=== PATIENT | female | born 1955 | race Caucasian/White ===

== ENCOUNTER 2024-02-20 14:38 | Outpatient (REF) | payer MEDICARE, MEDICAID, SELFPAY ==
[2024-02-22 17:53] LABS: HPV mRNA E6/E7 Not Detected (Not Detected)
== END 2024-02-20 14:39 | disposition home or self-care (01) ==
LOC: HO.LNP 14:38
PROVIDERS: PCP Internal Medicine; Visit Provider Obstetrics & Gynecology
DX: Z01.419 Encounter for gynecological examination (general) (routine) without abnormal findings (principal); R10.2 Pelvic and perineal pain; R31.29 Other microscopic hematuria; Z78.0 Asymptomatic menopausal state
CPT/HCPCS: 87086; 87624; 88175; 99387

== ENCOUNTER 2024-02-20 14:38 | Outpatient (AMB) | payer MEDICARE, MEDICAID, SELFPAY ==
--- NOTE | 2024-02-20 15:19 | A.OFFVIS_ITS ---
Vital Signs 02/20/24 15:21 Height 5 ft 5 in Weight 190 lb BMI 31.6 BP 110/60 Intake Visit Reasons: New patient Annual Retail Receiving Clerk Required: No Information Interpreted: non-clinical & clinical Applications Administrator: Applications Administrator Present (Lina Mcclure ANDRIA) Accompanied by: Self / Same As Patient Allergies Sulfa (Sulfonamide Antibiotics) Allergy (Intermediate, Verified 02/20/24 15:23) rash latex [LATEX] Allergy (Unknown, Unverified 02/20/24 15:23) RASH Latex Allergy (Unknown, Uncoded 02/20/24 15:23) Rash Post menopausal: Yes HPI Comments Details: Presenting for annual exam. Complaining of pelvic pressure on and off no associated urinary or GI symptoms, no vaginal bleeding or discharge . 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 Housing: House Alcohol intake: current Alcohol intake frequency: 3 or more drinks per day Patient Tobacco Use Status: Never used Tobacco Current occupational status: retired Sexual orientation: Straight/Heterosexual Gender identity: Female Review of Systems Const All systems reviewed & are unremarkable except as noted in HPI and below Card Reports as per HPI Resp Reports as per HPI GI Reports as per HPI and Reports no additional complaints Reports as per HPI Physical Exam Vital Signs: Last Vital Signs BP 110/60 02/20/24 15:21 BMI result Body Mass Index 31.6 Const General: cooperative, healthy appearing and comfortable Chest Chest palpation & inspection: normal inspection of the chest and normal palpation of entire chest wall Breast/axilla inspection: normal inspection of the breasts and normal inspection of the axillae Breast/axilla palpation: normal palpation of the breasts, normal palpation of the axillae and no axillary lymphadenopathy Resp Effort & Inspection: normal respiratory effort Auscultation: clear to auscultation bilaterally Percussion: percussion normal Cardio Palpation: normal PMI Rate: regular rate Rhythm: regular rhythm Heart sounds: no murmurs and no rubs Peripheral pulses: Peripheral pulses 2+ throughout GI Inspection: Yes normal to inspection Palpation (GI): Soft to palpation, nontender, no guarding, not rigid and No hepatosplenomegaly present Percussion: Yes normal to percussion Auscultation: normal bowel sounds Rectal Exam - Female: deferred General: Yes bladder normal to palpation External Female Exam: No lesion Speculum Exam - Vagina: normal appearance of the vagina, normal palpation, normal vaginal discharge and not erythematous Speculum Exam - Cervix: normal appearance of the cervix and normal palpation Bimanual exam- vagina & uterus: normal bimanual exam, normal palpation, uterine size normal, bladder normal to palpation, consistency normal and normal palpation Bimanual Exam- Adnexa, other: normal adnexae, no masses and no tenderness Assessment & Plan Assessment & Plan (1) Well woman exam: Code(s): Z01.419 - Encounter for gynecological examination (general) (routine) without abnormal findings Category: Medical Plan: Co testing done although the patient 's age is above 65 with no reason history of any l Pap smears results available. Counseled the patient about the recommended dietary allowance of 1200 mg of Calcium & 800 IU of vitamin D. Instructions given the patient to schedule next screening Mammogram in 05/25. Will order DEXA scan . The patient was instructed to perform monthly self-breast exams and to schedule a 2 week DEXA scan follow-up appointment and an annual exam in a year; All questions answered and the patient verbalized understanding. (2) Pelvic pain: Code(s): R10.2 - Pelvic and perineal pain Category: Medical Plan: Urine dip done in the office showed microscopic hematuria. Discussed with the patient the differential diagnosis of pelvic pain including but not limited to adnexal, uterine masses, pelvic infections (PID), GI the (Irritable bowel syndrome, diverticulitis, others), musculoskeletal, myofascial pain abdominal wall , adhesions, psychological and others causes. Will check results and treat accordingly. All questions answered, the patient verbalized understanding. Instructed the patient to schedule follow-up appointment in 2 weeks (3) Microscopic hematuria: Code(s): R31.29 - Other microscopic hematuria Category: Medical Plan: Urine dip showed microscopic hematuria, urine culture sent. Will repeat urine dip in 2 weeks. Discussed with the patient the possible causes of microscopic hematuria including but not limited to: interstitial cystitis, polyps, stones, masses, urethral inflammatory processes and others. If Urine Culture is negative and repeat urine dip in 2 weeks shows persistent microscopic hematuria, will proceed with CT abdomen/pelvis and urology referral. Instructions given the patient to schedule a 2 week urine dip follow-up appointment. All questions answered and the patient verbalized understanding. Orders: Orders XR DEXA axial skeleton Today Z78.0 - Asymptomatic menopausal state US pelvic and transvaginal Today R10.2 - Pelvic and perineal pain PAP + HPV E6/E7 rfx 18/45 Today Z01.419 - Encounter for gynecological examination (general) (routine) without abnormal findings Referrals Gastroenterology Referral Z12.11 - Encounter for screening for malignant neoplasm of colon Coding Level of Care Code New Pt Prev Care >65yr (03704) Diagnoses Well woman exam Z01.419 Pelvic pain R10.2 Microscopic hematuria R31.29
[2024-02-20 15:21] VITALS: BP 110/60; BMI 31.6
== END 2024-02-20 15:51 | disposition home or self-care (01) ==
PROVIDERS: PCP Internal Medicine; Visit Provider Obstetrics & Gynecology
DX: Z01.419 Encounter for gynecological examination (general) (routine) without abnormal findings (principal); R10.2 Pelvic and perineal pain; R31.29 Other microscopic hematuria
CPT/HCPCS: 99387

== ENCOUNTER 2024-03-12 10:44 | Outpatient (REF) | payer MEDICARE, MEDICAID, SELFPAY | END 2024-03-12 10:45 | disposition home or self-care (01) | LOC: HO.US 10:44 | PROVIDERS: PCP Internal Medicine; Visit Provider Obstetrics & Gynecology | DX: R10.2 Pelvic and perineal pain (principal) | CPT/HCPCS: 76830; 76856 ==

== ENCOUNTER 2024-03-15 12:46 | Outpatient (REF) | payer MEDICARE, MEDICAID, SELFPAY ==
--- NOTE | ~2024-03-15 | MM_ITS ---
EXAMINATION: BONE DENSITOMETRY CLINICAL INDICATION: Asymptomatic menopausal state. COMPARISON: This is the patient's baseline examination. TECHNIQUE: Using a [employer] DXA System (software version: 13.1) manufactured by [employer], dual-energy x-ray absorptiometry was performed of the lumbar spine and left hip. The images are of good technical quality. Summary results are attached. FINDINGS: LEFT FEMUR, NECK: BMD 0.866 g/cm2, Z-score 0.0, T-score -1.2, osteopenia. LEFT FEMUR, TOTAL: BMD 1.060 g/cm2, Z-score 1.4, T-score 0.4, normal. AP SPINE L1-L4: BMD 1.140 g/cm2, Z-score 0.7, T-score -0.3, normal. IDENTIFIED RISK FACTORS: Menopause. HISTORY OF FRACTURE: None listed. MEDICATIONS: Vitamin D. MM/XR DEXA axial skeleton IMPRESSION: 1. DIAGNOSIS: Osteopenia based on the lowest T-score value of -1.2 in the femoral neck applying World Health Organization criteria. 2. 10-YEAR FRACTURE RISK PREDICTION, FRAX: Major osteoporotic fracture (clinical spine, forearm, hip or shoulder) 8.9%. Hip fracture 1.0%. 3. Treatment Recommendations: NOF guidelines recommend consideration for treatment in postmenopausal women and men age 50 and older presenting with the following: -A hip or vertebral (clinical or morphometric) fracture. -T-score less than or equal to -2.5 at the femoral neck or spine after appropriate evaluation to exclude secondary causes. -Low bone mass at the hip or spine and a 10-year fracture probability by FRAX of greater than or equal to 3% for hip fracture or greater than or equal to 20% for major osteoporotic fracture based on the [place] adapted WHO algorithm. 4. Other Recommendations: All treatment decisions require clinical judgment and consideration of individual patient factors, including patient preferences, comorbidities, previous drug use, risk factors not captured in the FRAX model (e.g. frailty, falls, vitamin D deficiency, increased bone turnover, interval significant decline in bone density) and possible under or overestimation of fracture risk by FRAX. Additional medical evaluation for secondary cause of low bone mineral density may be appropriate. FUTURE SCAN RECOMMENDATION: People with diagnosed cases of osteoporosis or at high risk for fracture should have regular bone mineral density tests. For patients eligible for Medicare, routine testing is allowed once every 2 years. The testing frequency can be increased to one year for patients who have rapidly progressing disease, those who are receiving or discontinuing medical therapy to restore bone mass, or have additional risk factors. Electronically signed by: Hellen Heredia MD 03/18/2024 08:39 AM FR[facility]
== END 2024-03-15 12:47 | disposition home or self-care (01) ==
LOC: HO.MAMMO 12:46
PROVIDERS: PCP Internal Medicine; Visit Provider Obstetrics & Gynecology
DX: Z78.0 Asymptomatic menopausal state (principal)
CPT/HCPCS: 77080

== ENCOUNTER 2024-04-08 12:22 | Outpatient (AMB) | payer MEDICARE, MEDICAID, SELFPAY ==
--- NOTE | 2024-04-08 12:35 | MHC.OFFVIS ---
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 Housing: House Alcohol intake: current Alcohol intake frequency: 3 or more drinks per day Patient Tobacco Use Status: Never used Tobacco Current occupational status: retired Sexual orientation: Straight/Heterosexual Gender identity: Female Review of Systems Const All systems reviewed & are unremarkable except as noted in HPI and below Reports as per HPI and Reports no additional complaints GI Reports no additional complaints Reports no additional complaints Assessment & Plan Assessment & Plan (1) Osteopenia: Code(s): M85.80 - Other specified disorders of bone density and structure, unspecified site Category: Medical Plan: Discussed with the patient the DEXA results and FRAX risk. FRAX risk and T score showed no evidence of osteoporosis. Discussed with the patient all the options for osteoporosis prevention including lifestyle modifications including Ca+D supplements 1200 mg po qd/800 MIU, Weight bearing exercises and proteine supplements. The patient verbalized understanding and agreed plan will repeat DEXA in 2 years. (2) Microscopic hematuria: Code(s): R31.29 - Other microscopic hematuria Category: Medical Plan: Repeat urine dip showed no evidence of microscopic hematuria, the patient was reassured Coding Level of Care Code Est Pt Level 3 (74813) Diagnoses Osteopenia M85.80 Microscopic hematuria R31.29
== END 2024-04-08 12:58 | disposition home or self-care (01) ==
PROVIDERS: PCP Internal Medicine; Visit Provider Obstetrics & Gynecology
DX: M85.80 Other specified disorders of bone density and structure, unspecified site (principal); R31.29 Other microscopic hematuria
CPT/HCPCS: 99213

== ENCOUNTER → 2024-04-08 12:22 | Outpatient (BNVA) | payer MEDICARE, MEDICAID, SELFPAY | PROVIDERS: PCP Internal Medicine; Visit Provider Obstetrics & Gynecology | DX: M85.80 Other specified disorders of bone density and structure, unspecified site (principal); R31.29 Other microscopic hematuria | CPT/HCPCS: 99212 ==

== ENCOUNTER 2024-05-15 11:12 | Outpatient (AMB) | payer MEDICARE, MEDICAID, SELFPAY ==
--- NOTE | 2024-05-15 11:13 | AM.OFFWIN_ITS ---
Intake Vital Signs 05/15/24 11:22 Height 5 ft 5 in Weight 192 lb 8 oz BMI 32.0 BP 132/74 Blood Pressure Location Rt brachial Position Sitting Respiration 13 Pulse 81 Pulse Source Pulse Oximeter Pulse Oximetry (%) 97 Oxygen Delivery Method Room Air Intake Visit Reasons: Blood work Intake Note: Patient is here because she needs labs and refill on meds Patient Tobacco Use Status: Never used Tobacco Allergies Sulfa (Sulfonamide Antibiotics) Allergy (Intermediate, Verified 05/15/24 11:32) rash latex [LATEX] Allergy (Unknown, Verified 05/15/24 11:32) RASH Latex Allergy (Unknown, Uncoded 05/15/24 11:32) Rash Do you need a note to return to daycare/school/sports/work: No HPI HPI Comments History of Present Illness Details The patient is a 68-year-old female presenting with requests for laboratory tests and medication refills. She has a history of essential hypertension and hyperlipidemia, both of which are currently managed with atorvastatin and ramipril. The patient has been stable on her blood pressure medication since an episode many years ago and reports no changes in her symptomatology. Recently, she was transitioned to rosuvastatin approximately one year ago for hyperlipidemia management and wishes to evaluate the efficacy of this treatment through laboratory tests. Moreover, the patient experiences controlled asthma, previously managed under the care of a specialist who deemed her condition stable. However, she requires a refill for her Qvar inhaler. Additionally, the patient reports a longstanding heart murmur that has not been recently evaluated and has agreed to further investigation into its etiology. Has osteopenia. TAkes Vit D. Reports DEXA UTD. She will be est care here w/ me as PCP. Her appt as of now is scheduled in October. No records from previous PCP Dr Guzman as of this time Flu UTD Physical Exam Exam awake alert NAD RRR, 2/6 murmur RSB LS CTAB No edema BLE Discussion Notes During today?s visit, I discussed options for managing hyperlipidemia, emphasizing the current treatment plan with rosuvastatin and the need for laboratory evaluation. Risks and benefits of continuing current medications were reviewed, with a focus on ensuring cardiac health given the patient's history of a heart murmur. I informed the patient about the significance of the heart murmur and the importance of obtaining an echocardiogram to investigate its cause. We also discussed strategies to address potential medication gaps and difficulties related to insurance coverage. We agreed to follow up next week to review the test results and make necessary adjustments to her care plan. Plan - Perform laboratory tests including cho lesterol panel, kidney function, liver function, electrolytes, thyroid function, and vitamins B and D levels today - Schedule an echocardiogram to evaluate the heart murmur. - Refill the patient?s inhaler for asthm a management. - Follow-up appointment next week to rev iew laboratory results and adjust medications if necessary. Patient was informed and verbally consented to the use of an ambient scribe for clinic note documentation during this visit. This note is constructed using voice recognition software. While every effort has been made to ensure accuracy in research methods instructor, still errors may have been included Sometimes, these errors may affect the content or meaning of the given sentence . Total time spent caring for the patient today was 40 minutes. This includes time spent before the visit reviewing the chart, time spent during the visit, and time spent after the visit on documentation [facility] Medical History (Updated 05/15/24 @ 11:47 by Silvana Steven [facility]) Asthma HTN (hypertension) High cholesterol Surgical History H/O tubal ligation Family History Mother HTN (hypertension) Uterus cancer Sister Uterus cancer Social History Household Members: Spouse Household Members Other:: grandauthers Housing: House Alcohol intake: current Alcohol intake frequency: 3 or more drinks per day Patient Tobacco Use Status: Never used Tobacco Current occupational status: retired Sexual orientation: Straight/Heterosexual Gender identity: Female Physical Exam Vital Signs: Last Vital Signs Pulse 81 05/15/24 11:22 Resp 13 05/15/24 11:22 BP 132/74 05/15/24 11:22 Pulse Ox 97 05/15/24 11:22 Oxygen Delivery Method Room Air 05/15/24 11:22 BMI result Body Mass Index 32.0 Assessment & Plan Assessment & Plan (1) HLD (hyperlipidemia): Code(s): E78.5 - Hyperlipidemia, unspecified Qualifiers: Hyperlipidemia type: mixed hyperlipidemia Qualified Code(s): E78.2 - Mixed hyperlipidemia (2) HTN (hypertension): Code(s): I10 - Essential (primary) hypertension Qualifiers: Hypertension type: primary hypertension Qualified Code(s): I10 - Essential (primary) hypertension (3) Osteopenia: Code(s): M85.80 - Other specified disorders of bone density and structure, unspecified site Qualifiers: Osteopenia location: unspecified Qualified Code(s): M85.80 - Other specified disorders of bone density and structure, unspecified site (4) Heart murmur on physical examination: Code(s): R01.1 - Cardiac murmur, unspecified Plan . Orders: Orders Hemoglobin A1c Today E78.5 - Hyperlipidemia, unspecified, I10 - Essential (primary) hypertension Lipid Panel Today E78.5 - Hyperlipidemia, unspecified, I10 - Essential (primary) hypertension Vitamin B12 and Folate Today E78.5 - Hyperlipidemia, unspecified, I10 - Essential (primary) hypertension Microalbumin, Random (w Creat) Today E78.5 - Hyperlipidemia, unspecified, I10 - Essential (primary) hypertension Comprehensive [place]. Panel Fast Today E78.5 - Hyperlipidemia, unspecified, I10 - Essential (primary) hypertension TSH reflex Free T4 Today E78.5 - Hyperlipidemia, unspecified, I10 - Essential (primary) hypertension Vitamin D 25-OH Total Today E78.5 - Hyperlipidemia, unspecified, I10 - Essential (primary) hypertension, M85.80 - Other specified disorders of bone density and structure, unspecified site CA echo transthoracic complete Today R01.1 - Cardiac murmur, unspecified Medications: New beclomethasone dipropionate 80 mcg/actuation (Qvar RediHaler) 2 inhalations inhalation BID 10.6 grams 12RF Patient Instructions: Patient Instructions - Complete lab tests as discussed, preferably fasting. - Schedule and complete an echocardiogram at the cardiology department. - Continue current medications as prescribed until further notice. - Use topical magnesium as needed for muscle discomfort. - Attend the follow-up appointment next week to discuss test results and medication regimens. - Monitor any changes in symptoms and seek care if urgent issues arise. Walk-In Care (Urgent Care): We Make it Easy Walk-in for urgent medical issues such as: ? Seasonal Allergies ? Insect Bites ? Cough ? Diarrhea ? Acute Asthma Attacks ? Back, Knee or Joint Pain ? Ear Infection ? Fever without a Rash ? Headaches ? Nausea ? [place] [facility], Rash or Skin Irritation ? Sore Throat ? Sports Physicals ? Vomiting Most insurances are accepted. Patients do not need to be part of the [facility] to seek care at the walk-in clinic. Locations [address] [facility] , [place] [address] ? [phone] [facility] Walk-In Care in [place] provides services to ages 18 and over. Open Monday-Monday: 8 a.m. to 5 p.m. and Monday: 9 a.m. to 3 p.m.* *Hours may vary due to staffing availability. To confirm Walk-In Care hours in [place], please call [phone]. [address] [place] [address] ? [phone] [facility] Walk-In Care in [place] provides services to ages 12 and over. Open Monday-Monday: 8 a.m. to 5 p.m. Hours may vary due to staffing availability. To confirm Walk-In Care hours in [place], please call [phone]. LABORATORY SERVICES: [facility] Lab ? Primary Location [address] [place] [address] Monday through Monday 6:00 AM ? 5:00 PM Monday 7:00 AM ? 11:00 AM* [phone] The [facility] Lab is centrally located near the front entrance of the [facility] for easy outpatient access. Convenient parking is provided for outpatients. *Hours may vary due to staffing availability. To confirm Laboratory hours for any location, please call [phone]. Offsite Location For your convenience, we offer offsite laboratory draw stations at the following locations: [address] [place] [address] ? [facility] [address], [address] Monday through Monday 7:30 AM ? 1:00 PM* [phone] *Hours may vary due to staffing availability. To confirm Laboratory hours for any location, please call [phone]. [place] ? [address] Monday through Monday 6:00 AM ? 3:30 PM* Monday 6:30 AM ? 3 PM* [phone] *Hours may vary due to staffing availability. To confirm Laboratory hours for any location, please call [phone]. [address] [facility] Monday through Monday 7:30 AM ? 4:00 PM* [phone] *Hours may vary due to staffing availability. To confirm Laboratory hours for any location, please call [phone]. [address] [facility] Monday through 9:00 AM ? 4:00 PM* *Hours may vary due to staffing availability. To confirm Laboratory hours for any location, please call [phone]. Appointments are not necessary. Walk-ins are welcome. Like all the departments throughout the [facility], our Lab undergoes frequent reviews to ensure the quality and accuracy of test results, and our staff takes special pride in its status as a nationally accredited facility. Patient Portal: ONE PATIENT. ONE RECORD. BETTER CARE. [facility] has a fully integrated, cutting- edge mobile electronic health information system that has revolutionized the way we care for our patients and manage our organization. This system improves communication and coordination enabling us to provide safe, higher-quality care, and an overall positive experience for staff and patients. Our first priority, as always, is to deliver the highest quality care possible. The system is running in the background supporting that priority. This portal is for all [facility] and [facility] services and practices. If you are experiencing any technical difficulties with enrolling or logging into the Patient Portal please complete the [facility] Patient Portal Technical Support Form. [facility] and [facility] now offers a new secure on-line interactive tool for patients to review their health information ? ?Patient Portal. This interactive web portal will enable patients and their families to take an active role in their care by providing easy, secure access to their health information via the internet. The Patient Portal provides patients with instant access to their health information, including laboratory results, medications, allergies, demographic information, visit history, and more. In addition to managing their own care, parents and health care proxies with authorized consent will appreciate the ability to access the records of those individuals for whom they provide care. Please note: if you wish to gain access (Proxy) to another patient?s portal, you will be required to come to the Medical Records Department in person at [facility]. Both the patient giving proxy access and the proxy will need to provide photo identification and complete the appropriate authorization. The Patient Portal also allows track their appointments online. The [facility] Patient Portal also saves patients time by allowing them to submit updates to their demographic and contact information prior to their visits. Portal email notifications will also alert patients to any new activity on their portal, such as test results and new appointments. In order to initially enroll in the [facility] Patient Portal, you will need to enter some required information including the following: * your [facility] Medical Record number * your personal home email address * name * date of Please note: In order to enroll in the [facility] Patient Portal, we need to have your email address on file in your electronic medical record. ?The email address needs to be specific for one person (yourself) in order for your Portal enrollment to be successful. ?You can update your email address in person with our Registration staff when you are registering for a hospital visit. ?Otherwise, you will need to come to the Health Information Management (Medical Records) Department at [facility]. ?We are open from Monday ? Monday from 7:30 a.m. ? 4:30 p.m. ?You will be required to present a photo id. Once you have successfully enrolled in the Patient Portal, you will receive a one-time user id and password for the Portal, sent to your email address. ?This will allow you to log into the Patient Portal within 99 hrs and reset your own logon id and password, and define personal security questions. ?Once your permanent login and password have been set, you can log into the [facility] Patient Portal at any time via the blue button above or from the Portal Logon button on any page of the [facility] website. [facility] and [facility] encourage all of our patients to enroll in Patient Portal as it presents a valuable opportunity for patients and their families to actively participate in their care and stay healthy Welcome to [facility]. ?We look forward to working with you. Coding Level of Care Code Est Pt Level 5 (33592) Diagnoses Mixed hyperlipidemia E78.2 Hyperlipidemia type: mixed hyperlipidemia Primary hypertension I10 Hypertension type: primary hypertension Osteopenia, unspecified location M85.80 Osteopenia location: unspecified Heart murmur on physical examination R01.1
[2024-05-15 11:22] VITALS: BP 132/74; PULSE 81; RESP 13; O2SAT 97; BMI 32.0
== END 2024-05-15 11:56 | disposition home or self-care (01) ==
PROVIDERS: PCP Internal Medicine; Visit Provider Nurse Practitioner Family
DX: E78.2 Mixed hyperlipidemia (principal); I10 Essential (primary) hypertension; M85.80 Other specified disorders of bone density and structure, unspecified site; R01.1 Cardiac murmur, unspecified

== ENCOUNTER → 2024-05-15 11:12 | Outpatient (BNVA) | payer MEDICARE, MEDICAID, SELFPAY | PROVIDERS: PCP Internal Medicine ==

== ENCOUNTER 2024-05-15 11:43 | Outpatient (REF) | payer MEDICARE, MEDICAID, SELFPAY ==
[2024-05-15 14:40] LABS: Estimated Average Glucose 120 mg/dL; Hemoglobin A1C 146.1885 umol/L; Hemoglobin A1c % 5.8 % (<6.0); Total Hemoglobin (HGBA1C) 3712.4633 umol/L
[2024-05-15 14:51] LABS: Alanine Aminotransferase 21 U/L (0-31); Albumin Level 4.5 g/dL (3.5-5.0); Alkaline Phosphatase 71 U/L (39-117); Anion Gap 9 (12-20); Aspartate Amino Transferase 25 U/L (5-31); Bilirubin Total 0.6 mg/dL (0.0-1.0); Blood Urea Nitrogen 15 mg/dL (9-16); Calcium 9.8 mg/dL (8.4-10.2); Carbon Dioxide 28 mmol/L (22-29); Chloride 108 mmol/L (96-108); Cholesterol 202 mg/dL (<200); Estimated Glomerular Filt Rate > 60; Glucose Fasting 101 mg/dL (60-99); HDL Cholesterol 66 mg/dL (>40); LDL Cholesterol Calculated 115 mg/dL (<100); Potassium 4.4 mmol/L (3.3-5.1); Sodium 141 mmol/L (135-145); Total Protein 7.7 g/dL (6.5-8.0); Triglycerides 109 mg/dL (<150)
[2024-05-15 14:54] LABS: Creatinine Urine 173.34 mg/dL
[2024-05-15 15:11] LABS: TSH reflex Free T4 2.54 uIU/mL (0.32-4.0); Vitamin D 25-OH Total 55.9 ng/mL (>30)
[2024-05-15 15:17] LABS: Folate 8.1 ng/mL (> or = 4.0); Vitamin B12 1526 pg/mL (200-900)
== END 2024-05-15 11:44 | disposition home or self-care (01) ==
LOC: HO.WFDLDS 11:43
PROVIDERS: Visit Provider Nurse Practitioner Family
DX: E78.2 Mixed hyperlipidemia (principal); I10 Essential (primary) hypertension; M85.80 Other specified disorders of bone density and structure, unspecified site; R01.1 Cardiac murmur, unspecified; E78.00 Pure hypercholesterolemia, unspecified; Z13.1 Encounter for screening for diabetes mellitus
CPT/HCPCS: 36415; 80053; 80061; 82043; 82306; 82570; 82607; 82746; 83036; 84443; 99212

== ENCOUNTER 2024-05-23 09:46 | Outpatient (AMB) | payer MEDICARE, MEDICAID, SELFPAY ==
--- NOTE | 2024-05-23 09:47 | A.OFFPC_ITS ---
Vital Signs 05/23/24 09:53 Height 5 ft 5 in Weight 195 lb 8 oz BMI 32.5 BP 132/70 Blood Pressure Location Rt brachial Position Sitting Respiration 13 Pulse 72 Pulse Source Pulse Oximeter Temp 97.7 F Temp Source Oral Pulse Oximetry (%) 98 Oxygen Delivery Method Room Air Intake Visit Reasons: 1 week 30 min new pt, est care Intake Note: new patient to establish care Stencil Sprayer Required: No Allergies Sulfa (Sulfonamide Antibiotics) Allergy (Intermediate, Verified 05/23/24 10:12) rash latex [LATEX] Allergy (Unknown, Verified 05/23/24 10:12) RASH Latex Allergy (Unknown, Uncoded 05/23/24 10:12) Rash Medication List - Last Reconciled 05/23/24 by SERVANDO RosasP- albuterol sulfate 90 mcg/actuation 2 puffs inhalation Q6H PRN beclomethasone dipropionate 80 mcg/actuation (Qvar RediHaler) 2 inhalations inhalation BID cetirizine (Allergy Relief (cetirizine)) 10 mg PO DAILY PRN cholecalciferol (vitamin D3) 25 mcg PO DAILY cyanocobalamin (vitamin B-12) 500 mcg PO DAILY ramipril 5 mg PO DAILY rosuvastatin 40 mg PO DAILY Tobacco use date assessed: 05/23/24 Fall risk assessment: No Falls in past year Last assessed Fall Risk: 05/23/24 Dental Screening Dental Screen Date: 05/23/24 Did you have a dental visit in the last 12 months?: Yes Did you have a dental problem in the last 6 months where you did not have access to dental care?: No Was dental information given to patient?: Patient has dentist HPI HPI Comments History of Present Illness Details 68-year-old female with hypertension, hy perlipidemia, asthma, heart murmur, osteopenia, prediabetes, history of neck fracture as a child, edematous colon polyp Status post tubal ligation, tonsillectomy Family history mother of lung cancer, father of COPD, brother of lung cancer, sister with endometrial carcinoma Health Maintenance: ? Colon 04/10/2023 repeat in 5 years ? Mammo 05/19/22 wnl, order placed today to be done at [facility] [place] ? DEXA 03/15/24, repeat 2025 (managed by [facility] [employer]) ? PAP ? Tdap 01/14/13 - declined Flu UTD Specialists: Derm [employer] [employer] Results: Labs from 05/15/2024 show normal electrolytes, normal renal function, hemoglobin A1c of 5.8%, normal calcium, normal LFTs, total cholesterol 202, LDL 115, HDL 66, triglycerides 109, elevated B12 1526, normal vitamin-D 55.9, normal TSH and folate, normal urine microalbumin creatinine ratio Echo - ordered and pending Jun 2024 Physical Exam Exam awake alert NAD RRR, 2/6 murmur RSB LS CTAB No edema BLE PFSH Medical History Asthma HTN (hypertension) High cholesterol Surgical History H/O tubal ligation Family History (Updated 05/23/24 @ 09:49 by Balbina Harp MA) Mother HTN (hypertension) Uterus cancer Sister Uterus cancer Social History (Updated 05/23/24 @ 09:48 by Balbina Harp MA) Household Members: Spouse Household Members Other:: grandauthers Both parents involved: No Caregiver staying overnight: No Housing: House Are you a primary care attendant to a significant other at home: No Do you presently have visiting nurse or other home services: No 75 years or older and lives alone: No Alcohol intake: current Alcohol intake frequency: 3 or more drinks per day Patient Tobacco Use Status: Never used Tobacco e-Cigarette/Vaping Use: Never Used Encourage to stop smoking at least 8hrs prior to surgery: No Current occupational status: retired Sexual orientation: Straight/Heterosexual Gender identity: Female Cognitive needs: No Hearing needs: No Vision needs: No Questionnaire PHQ-9 Over the last 2 weeks, how often have you been bothered by any of the following problems? 1. Little interest or pleasure in doing things: not at all 2. Feeling down, depressed, or hopeless: not at all 3. Trouble falling or staying asleep, or sleeping too much: not at all 4. Feeling tired or having little energy: not at all 5. Poor appetite or overeating: not at all 6. Feeling bad about yourself - or that you are a failure or have let yourself or your family down: not at all 7. Trouble concentrating on things, such as reading the newspaper or watching television: not at all 8. Moving or speaking so slowly that other people could have noticed. Or the opposite - being so fidgety or restless that you have been moving around a lot more than usual: not at all 9. Thoughts that you would be better off or of hurting yourself in some way: not at all Total score: 0 Depression Screening Interpretation: Negative Depression Screening Done: Yes 91684 - PHQ-9 Billing: Yes Source: Developed by Drs. Miguelangel Bales, Kathleen Curry, Leonides Alves and colleagues, with an educational veronica from [employer] Thrive Questionnaire Date Thrive assessed: 05/23/24 I am a: Patient What is your living situation today?: I have a steady place to live Within the past 12 months, did the food you bought not last and you didn't have the money to get more?: Never true Within the past 12 months, did you worry whether your food would run out before you got money to buy more?: Never true Do you have trouble paying for medicines?: No Do you have trouble getting transportation to medical appointments?: No Do you have trouble paying your heating and electricity bill?: No Do you have trouble taking care of your child, family member or friend?: No Do you have trouble with day-to-day activities such as bathing, preparing meals, shopping, managing finances, etc.?: No Are you currently unemployed and looking for a job?: No Are you interested in more education?: No Please select the resources that you would like help with: None Currently or been in a relationship where the following occur: No concerns reported THRIVE Score: 0 AUDIT C Alcohol Use Questionnaire (AUDIT-C) 1. How often do you have a drink containing alcohol?: Monthly or less 2. How many drinks containing alcohol do you have on a typical day when you are drinking?: 3 or 4 3. How often do you have six or more drinks on one occasion?: Less than monthly Total Score: 3 Score Reviewed/Action Taken: Yes EVELYN-7 AMB Questionnaire EVELYN-7 Date EVELYN - 7 assessed: 05/23/24 Feeling nervous, anxious, or on edge: 0 = Not at all Not being able to stop or control worryin = Not at all Worrying too much about different things: 0 = Not at all Trouble relaxin = Not at all Being so restless that it is hard to sit still: 0 = Not at all Becoming easily annoyed or irritable: 0 = Not at all Feeling afraid as if something awful might happen: 0 = Not at all Total EVELYN-7 score (0-4 normal; 5-9 mild; 10-14 moderate; 15-21 severe): 0 Source: Developed by Drs. Miguelangel Bales, Kathleen Curry, Leonides Alves and colleagues, with an educational veronica from [employer] EVELYN-7 Assessment Billing EVELYN-7 Assessment Tool: EVELYN-7 Assessment 70585 ACT Questionnaire In the past 4 weeks, how much of the time did your asthma keep you from getting as much done at work, school or at home?: None of the time During the past 4 weeks, how often have you had shortness of breath?: Not at all During the past 4 weeks, how often did your asthma symptoms wake you up at night or earlier than usual in the morning?: Not at all During the past 4 weeks, how often have you had to use your rescue inhaler or nebulizer medication?: Not at all How would you rate your asthma control during the past 4 weeks?: Completely controlled ACT Interpretation: Negative Score: 25 Physical exam (Primary Care) Vital Signs: Last Vital Signs Temp 97.7 F 05/23/24 09:53 Pulse 72 05/23/24 09:53 Resp 13 05/23/24 09:53 BP 132/70 05/23/24 09:53 Pulse Ox 98 05/23/24 09:53 Oxygen Delivery Method Room Air 05/23/24 09:53 BMI result Body Mass Index 32.5 Tobacco/Smoking Status: Tobacco use Status Tobacco use date assessed 05/23/24 05/23/24 09:54 Patient Tobacco Use Status Never used Tobacco 05/23/24 09:48 e-Cigarette/Vaping Use Never Used 05/23/24 09:54 PHQ-9: PHQ-9 Score PHQ-9: Total score 0 05/23/24 09:54 Depression Screening Interpretation: Negative Thrive Assessment: Date of Thrive Assessment Date Thrive assessed 05/23/24 05/23/24 09:54 Currently or been in a relationship where the following occur: No concerns reported Coding Diagnoses Tetanus, diphtheria, and acellular pertussis (Tdap) vaccination declined Z28.21 Left leg pain M79.605 Heart murmur on physical examination R01.1 Primary hypertension I10 Hypertension type: primary hypertension Mixed hyperlipidemia E78.2 Hyperlipidemia type: mixed hyperlipidemia Additional Codes EVELYN-7 Assessment Billing - EVELYN-7 Assessment Tool: EVELYN-7 Assessment 08418 ([id number]) PHQ-9 - 82331 - PHQ-9 Billing: Yes ([id number]) Asthma Control Questionnaire - ACT Interpretation: Negative ([id number]) Assessment & Plan Assessment & Plan (1) Tetanus, diphtheria, and acellular pertussis (Tdap) vaccination declined: Code(s): Z28.21 - Immunization not carried out because of patient refusal (2) Left leg pain: Code(s): M79.605 - Pain in left leg Category: Medical (3) Heart murmur on physical examination: Code(s): R01.1 - Cardiac murmur, unspecified Category: Medical (4) HTN (hypertension): Code(s): I10 - Essential (primary) hypertension Category: Medical Qualifiers: Hypertension type: primary hypertension Qualified Code(s): I10 - Essential (primary) hypertension (5) HLD (hyperlipidemia): Code(s): E78.5 - Hyperlipidemia, unspecified Category: Medical Qualifiers: Hyperlipidemia type: mixed hyperlipidemia Qualified Code(s): E78.2 - Mixed hyperlipidemia Orders: Orders MM tomosynthesis screening BI Today Z12.31 - Encounter for screening mammogram for malignant neoplasm of breast Comprehensive [place]. Panel Fast 6 Months E78.2 - Mixed hyperlipidemia, I10 - Essential (primary) hypertension Hemoglobin A1c 6 Months E78.2 - Mixed hyperlipidemia, I10 - Essential (primary) hypertension Lipid Panel 6 Months E78.2 - Mixed hyperlipidemia, I10 - Essential (primary) hypertension
[2024-05-23 09:53] VITALS: BP 132/70; PULSE 72; RESP 13; TEMP 36.5; O2SAT 98; BMI 32.5
--- NOTE | 2024-05-23 11:54 | AM.OFFVISMDC ---
Intake Vital Signs 05/23/24 09:53 05/23/24 11:58 Height 5 ft 5 in Weight 195 lb 8 oz BMI 32.5 32.5 BP 132/70 Blood Pressure Location Rt brachial Position Sitting Respiration 13 Pulse 72 Pulse Source Pulse Oximeter Temp 97.7 F Temp Source Oral Pulse Oximetry (%) 98 Oxygen Delivery Method Room Air Intake Visit Reasons: 1 week 30 min new pt, est care Allergies Sulfa (Sulfonamide Antibiotics) Allergy (Intermediate, Verified 05/23/24 10:12) rash latex [LATEX] Allergy (Unknown, Verified 05/23/24 10:12) RASH Latex Allergy (Unknown, Uncoded 05/23/24 10:12) Rash Medication List - Last Reconciled 05/23/24 by Silvana Steven [facility]- albuterol sulfate 90 mcg/actuation 2 puffs inhalation Q6H PRN beclomethasone dipropionate 80 mcg/actuation (Qvar RediHaler) 2 inhalations inhalation BID cetirizine (Allergy Relief (cetirizine)) 10 mg PO DAILY PRN cholecalciferol (vitamin D3) 25 mcg PO DAILY cyanocobalamin (vitamin B-12) 500 mcg PO DAILY ramipril 5 mg PO DAILY rosuvastatin 40 mg PO DAILY HPI HPI Comments History of Present Illness Details 68-year-old female with hypertension, hyperlipidemia, asthma, heart murmur, osteopenia, prediabetes, history of neck fracture as a child, edematous colon polyp, family hx of lung ca, family hx of endometrial cancer, eczema Here today for AWV. The Medicare Annual Wellness Visit (AWV) is a yearly appointment with a health professional to identify health risks and help reduce them and to create or update a personalized prevention plan. During a Medicare AWV, health professionals should also review any current opioid prescriptions, detect any cognitive impairment, and establish or update medical and family history. SurgHx: Status post tubal ligation, tonsillectomy FHx Family history mother of lung cancer, father of COPD, brother of lung cancer, sister with endometrial carcinoma SocHx: lives w/ , has custody of her son, Froilan's 2 children, Maggie and McKenze 7&4 Health Maintenance: See scanned preventative medicine assessment with personalized health plan and screening schedule. ? Colon 04/10/2023 repeat in 5 years ? Mammo 05/19/22 wnl, order placed today to be done at [facility] ? DEXA 03/15/24, repeat 2025 (managed by [facility]) ? PAP ? Tdap 01/14/13 - declined, Flu UTD AAA screen: NA EKG: NA [place] of Care: Derm [facility] Visual Acuity: wears glasses, last eye exam 2023 Hearing Screening: WNL w/o aides. ACP: Y Dietary/Nutrition/Exercise Edu provided: Y During the course of the visit the patient was educated and counseled about appropriate screening and preventative services. Patient instructions were provided to the patient in written or electronic format. I have reviewed and verified the above information. History of Present Illness The patient is a 68-year-old female presenting for AWV and chronic dz mgmt as new patient. She has a history of essential hypertension, hyperlipidemia, asthma, osteopenia, and prediabetes. She regularly takes medications for these conditions, which she has obtained recently without issues. The hypertension is controlled, and hyperlipidemia has improved, evidenced by recent lab results showing a reduction in cholesterol levels. The patient's prediabetes has been monitored, with an A1c of 5.8%, showing improvement from previous levels. She has a history of bone density issues with osteopenia, last assessed in 2023, and she plans to follow up with repeat testing in 2025. The patient reports recent onset of right buttock and leg pain, initially thought to be hamstring-related, possibly linked to recent intake of magnesium supplements alongside Crestor, which she stopped a week ago. She currently experiences some relief from these symptoms. Previous medical records from Dr. Mcfarland showed impaired fasting glucose and cholesterol issues which are currently improving with her recent labs. She also manages risks associated with asthma and has an understanding of her health conditions as indicated by regular follow-ups and medication adherence. Health Maintenance - Colorectal cancer screening: Colonoscopy done in 2022, next due in 2027. - Breast cancer screening: Mammogram performed in 2022, order placed for upcoming mammogram. - Bone density screening: Last done in 2023, repeat planned for 2025. - Tetanus vaccine due since 2012, patients declined administration at this visit. - Weight and risk management: Maintaining cholesterol-lowering medication (Crestor) and dietary adjustments. Social History - Acts as a guardian to grandchildren (ages 4 and 7) due to son's heroin addiction. - Lives with her , who helps with childcare. - Involvement with her grandchildren's school, speech therapy, and counseling sessions. - Reports diet primarily consisting of children's dietary preferences. Review of Systems - General: Denies fatigue. - Musculoskeletal: Reports leg pain, particularly in the right buttock and hamstring area. - Cardiovascular: Denies any new cardiac symptoms. Exam: General: Well developed, well nourished, in no acute distress. Appears stated age. Head: Normocephalic, atraumatic. Eyes: Pupils are equal, round and reactive to light and accommodation. Conjunctivae are clear. Vision grossly normal. Ears: Eczema R canal, mild clouding of R TM otherwise WNL Nose: Patent, without discharge. Mouth: There are no ulcers or lesions noted. No inflammation, no post nasal drip, no plaques nor exudates. Neck: Supple, no adenopathy or thyromegaly. Lungs: Clear to auscultation bilaterally. No rales, rhonchi or wheeze noted. Good air flow in all gomez. Heart: Regular rate and rhythm. No click, rubs or gallops are noted. 2/6 murmur RSB Abdomen: Bowel sounds present in all quadrants. The abdomen is soft, nontender, with no masses or organomegaly noted. No hernias are noted. Musculoskeletal: Joints are nontender, without swelling, redness, or effusions. Range of motion is observed to be normal. Pulses: Peripheral pulses are equal and palpable bilaterally. Extremities: No clubbing, cyanosis nor edema is noted. Neurologic: Gait and station normal. Cranial Nerves 2-12 intact. Motor strength grossly symmetrical and intact. No sensory loss. Balance normal. Skin: No rashes, ulcers. +lesions on back reports Derm meza these off. Turgor is good. Skin color is good. Hair and nails are without abnormalities. Psych: Normal eye contact, affect and mood appropriate, and normal interactions. Patient is alert and appropriate to context. Results Results: Labs from 05/15/2024 show normal electrolytes, normal renal function, hemoglobin A1c of 5.8%, normal calcium, normal LFTs, total cholesterol 202, LDL 115, HDL 66, triglycerides 109, elevated B12 1526, normal vitamin-D 55.9, normal TSH and folate, normal urine microalbumin creatinine ratio Echo - ordered and pending Jun 2024 - Labs: - A1c: 5.8% (improvement from previous levels) Plan - Continue current antihypertensive and lipid-lowering medications as they are effective. - Encourage avoidance of magnesium supplements while on statins. - Monitor prediabetes; reassess with periodic A1c testing. - Re-evaluate right hamstring pain if symptoms persist for two more weeks without magnesium intake. - Plan follow-up appointments every six months to assess condition and laboratory parameters. - Ensure completion of echocardiogram, follow-up results as they become available. - Discussed discontinuing Vitamin B, continuation of Vitamin D supplementation. - Maintain scheduled cancer screenings: mammography order placed. Patient was informed and verbally consented to the use of an ambient scribe for clinic note documentation during this visit. Discussion Notes Today, I discussed with the patient her overall health status, focusing on her chronic conditions such as hypertension, hyperlipidemia, asthma, osteopenia, and prediabetes. The patient is currently responding well to her medication regimens, which are effectively managing her hypertension and hyperlipidemia, noted by improved lab results. I emphasized the importance of keeping up with her preventative health checks, such as colonoscopy and mammogram, as part of her ongoing health maintenance. We reviewed the potential interaction between magnesium supplements and her statin medication, advising her to discontinue magnesium if no specific deficiency requires it. We discussed her prediabetes status, noting an improvement in glucose metabolism with an A1c of 5.8%. The patient's readiness to participate in the management of her health is evident, as she declined a tetanus booster for now, but is aware of its due status. Regarding her son's substance use issues and her resulting guardianship role for her grandchildren, we discussed its impact on her social circumstances. Finally, we discussed the potential impact of new medication trends such as Wegovy, where I advised against its use due to the adverse effects profile and lack of sustained benefits post-cessation. Patient Instructions - Continue taking medications as prescribed, including Crestor. - Discontinue magnesium supplements unless specifically advised to resume. - Follow up with scheduled mammogram and echocardiogram. - Monitor and record any changes in hamstring pain; revisit if no improvement in two weeks. - Maintain healthy dietary habits to support cholesterol and glucose control. - Plan to revisit in six months for comprehensive evaluation and repeat labs. An additional 30 minutes was spent addressing the problem(s) noted at todays visit. This includes time spent before the visit reviewing the chart, time spent during the visit, and time spent after the visit on documentation reviewing laboratory results, diagnostic imaging, medications, performing a medically necessary evaluation, counseling on diagnoses, care coordination, ordering appropriate tests, ordering appropriate medications, review of tests performed by other providers, reporting test results with the patient, communication with other healthcare providers. [facility] Medical History Asthma HTN (hypertension) High cholesterol Surgical History H/O tubal ligation Family History (Updated 05/23/24 @ 09:49 by Balbina Harp MA) Mother HTN (hypertension) Uterus cancer Sister Uterus cancer Social History (Updated 05/23/24 @ 09:48 by Balbina Harp MA) Household Members: Spouse Household Members Other:: grandauthers Both parents involved: No Caregiver staying overnight: No Housing: House Are you a primary progressive care nurse to a significant other at home: No Do you presently have visiting nurse or other home services: No 75 years or older and lives alone: No Alcohol intake: current Alcohol intake frequency: 3 or more drinks per day Patient Tobacco Use Status: Never used Tobacco e-Cigarette/Vaping Use: Never Used Current occupational status: retired Sexual orientation: Straight/Heterosexual Gender identity: Female Cognitive needs: No Hearing needs: No Vision needs: No Questionnaire Medicare Wellness Checkup What [age]?: [age] What gender do you identify with?: female During the past 4 weeks, how much have you been bothered by emotional problems such as feeling anxious, depressed, irritable, sad or downhearted, and blue?: not at all During the past 4 weeks, has your physical & emotional health limited your social activities with family, friends, neighbors, or groups?: not at all During the past 4 weeks, how much bodily pain have you generally had?: no pain During the past 4 weeks, was someone available to help you if you needed & wanted help?: yes, as much as I wanted During the past 4 weeks, what was the hardest physical activity you could do for at least 2 minutes?: moderate Can you get to places out of walking distance without help? (For eg., can you travel alone on buses, taxis or drive your car?): Yes Can you go shopping for groceries or clothes without someone's help?: Yes Can you prepare your own meals?: Yes Can you do your housework without help?: Yes Because of any health problems, do you need the help of another person with your personal care needs such as eating, bathing, dressing or getting around the house?: No Can you handle your own money without help?: Yes During the past 4 weeks, how would you rate your health in general?: very good During the past 4 weeks how have things been going for you?: pretty well Are you having difficulties driving your car?: no Do you always fasten your seat belt when you are in a car?: yes, usually During past 4 weeks, have you been bothered by the following: never: Falling or dizzy when standing up, Sexual problems?, Trouble eating well?, Teeth or denture problems?, Problems using the telephone? and Tiredness or fatigue? Have you fallen 2 or more times in the past year?: No Are you afraid of falling?: No Are you a smoker?: no During the past 4 weeks, how many drinks of wine, beer, or other alcoholic beverages did you have?: 2-5 drinks per week Do you exercise for about 20 minutes 3 or more times a week?: yes, some of the time Have you been given information to help with the following?: no: Hazards in your house that might hurt you? How often do you have trouble taking medicines the way you have been told to take them?: I always take medicine as prescribed How confident are you that you can control & manage most of your health problems?: very confident What is your race?: White Activity of Daily Living Bathing - sponge bath, tub bath or shower: receives no assistance (gets in/out by self, if usual bathing means Dressing - getting clothes from closets & drawers, including inner/outer garments & fasteners.: gets clothes & gets completely dressed without help Toileting - going to the 'toilet room' for urine/bowel elimination & cleaning self/arranging clothes: goes to toilet room, cleans self, arranges clothes without help Transfer: moves in & out of bed and chair without help (may use support object) Continence: controls urination/bowel movements completely by self Feeding: feeds self without help Total Score: 0 Information obtained from: patient Using telephone: independent Traveling: independent Shopping: independent Preparing meals: independent Housework: independent Taking medicine: independent Managing money: independent PHQ-9 Over the last 2 weeks, how often have you been bothered by any of the following problems? 1. Little interest or pleasure in doing things: not at all 2. Feeling down, depressed, or hopeless: not at all 3. Trouble falling or staying asleep, or sleeping too much: not at all 4. Feeling tired or having little energy: not at all 5. Poor appetite or overeating: not at all 6. Feeling bad about yourself - or that you are a failure or have let yourself or your family down: not at all 7. Trouble concentrating on things, such as reading the newspaper or watching television: not at all 8. Moving or speaking so slowly that other people could have noticed. Or the opposite - being so fidgety or restless that you have been moving around a lot more than usual: not at all 9. Thoughts that you would be better off or of hurting yourself in some way: not at all Total score: 0 Depression Screening Interpretation: Negative Depression Screening Done: Yes 76623 - PHQ-9 Billing: Yes Source: Developed by Drs. Miguelangel Bales, Kathleen Curry, Leonides Alves and colleagues, with an educational veronica from [employer]. Physical Exam Vital Signs: Last Vital Signs Temp 97.7 F 05/23/24 09:53 Pulse 72 05/23/24 09:53 Resp 13 05/23/24 09:53 BP 132/70 05/23/24 09:53 Pulse Ox 98 05/23/24 09:53 Oxygen Delivery Method Room Air 05/23/24 09:53 BMI result Body Mass Index 32.5 Assessment & Plan Assessment & Plan (1) Encounter for subsequent annual wellness visit (AWV) in Medicare patient: Code(s): Z00.00 - Encounter for general adult medical examination without abnormal findings (2) Left leg pain: Code(s): M79.605 - Pain in left leg (3) Heart murmur on physical examination: Code(s): R01.1 - Cardiac murmur, unspecified (4) HTN (hypertension): Code(s): I10 - Essential (primary) hypertension Qualifiers: Hypertension type: primary hypertension Qualified Code(s): I10 - Essential (primary) hypertension (5) HLD (hyperlipidemia): Code(s): E78.5 - Hyperlipidemia, unspecified Qualifiers: Hyperlipidemia type: mixed hyperlipidemia Qualified Code(s): E78.2 - Mixed hyperlipidemia (6) BMI 32.0-32.9,adult: Code(s): Z68.32 - Body mass index [BMI] 32.0-32.9, adult (7) Class 1 obesity with body mass index (BMI) of 32.0 to 32.9 in adult: Comment: Htn and HLD Code(s): E66.811 - Obesity, class 1; Z68.32 - Body mass index [BMI] 32.0-32.9, adult Qualifiers: Obesity type: due to excess calories Serious obesity comorbidity presence: with serious comorbidity Qualified Code(s): E66.811 - Obesity, class 1; E66.09 - Other obesity due to excess calories; Z68.32 - Body mass index [BMI] 32.0-32.9, adult (8) Osteopenia: Code(s): M85.80 - Other specified disorders of bone density and structure, unspecified site Qualifiers: Osteopenia location: unspecified Qualified Code(s): M85.80 - Other specified disorders of bone density and structure, unspecified site (9) Mild intermittent asthma in adult without complication: Code(s): J45.20 - Mild intermittent asthma, uncomplicated (10) Prediabetes: Code(s): R73.03 - Prediabetes (11) History of colon polyps: Code(s): Z86.0100 - Personal history of colon polyps, unspecified (12) Family history of lung cancer: Comment: brother and mother Code(s): Z80.1 - Family history of malignant neoplasm of trachea, bronchus and lung (13) Family history of malignant neoplasm of endometrium: Comment: sister Code(s): Z80.49 - Family history of malignant neoplasm of other genital organs (14) Tetanus, diphtheria, and acellular pertussis (Tdap) vaccination declined: Code(s): Z28.21 - Immunization not carried out because of patient refusal Plan . Orders: Orders MM tomosynthesis screening BI Today Z12.31 - Encounter for screening mammogram for malignant neoplasm of breast Comprehensive [place]. Panel Fast 6 Months E78.2 - Mixed hyperlipidemia, I10 - Essential (primary) hypertension Hemoglobin A1c 6 Months E78.2 - Mixed hyperlipidemia, I10 - Essential (primary) hypertension Lipid Panel 6 Months E78.2 - Mixed hyperlipidemia, I10 - Essential (primary) hypertension Patient Instructions: Health screenings for women You should visit your health care provider from time to time, even if you are healthy. The purpose of these visits is to: Screen for medical issues Assess your risk for future medical problems Encourage a healthy lifestyle Update vaccinations and other preventive care services Help you get to know your provider in case of an illness Information Even if you feel fine, you should still see your provider for regular checkups. These visits can help you avoid problems in the future. For example, the only way to find out if you have high blood pressure is to have it checked regularly. High blood sugar and high cholesterol levels also may not have any symptoms in the early stages. A simple blood test can check for these conditions. There are specific times when you should see your provider or receive specific health screenings. The [place] Preventive Services Task Force publishes a list of recommended screenings. Below are screening guidelines for women ages 18 to 39. BLOOD PRESSURE SCREENING Your blood pressure should be checked at least once every 3 to 5 years if: Your blood pressure is in the normal range (top number less than 120 mm Hg and bottom number less than 80 mm Hg) You don't have risk factors for high blood pressure Ask your provider if you need your blood pressure checked more often if: The top number is 120 to 129 mm Hg or the bottom number is 70 to 79 mm Hg You have diabetes, heart disease, kidney problems, are overweight, or have certain other health conditions You have a first-degree relative with high blood pressure You are Black You had high blood pressure during a If the top number is 130 mm Hg or greater or the bottom number is 80 mm Hg or greater, this is considered stage 1 hypertension. Schedule an appointment with your provider to learn how you can reduce your blood pressure. Watch for blood pressure screenings in your area. Ask your provider if you can stop in to have your blood pressure checked. BREAST CANCER SCREENING Experts do not agree about the benefits of breast self-exams in finding breast cancer or saving lives. Talk to your provider about what is best for you. A screening mammogram is not recommended for most women under age 40. Your provider may discuss and recommend mammograms, MRI scans, or ultrasounds if you have an increased risk for breast cancer, such as: A mother or sister who had breast cancer at a young age (most often starting screening earlier than the age the close relative was diagnosed) You carry a high-risk genetic marker CERVICAL CANCER SCREENING Cervical cancer screening should start at age 21 years unless your provider advises otherwise. After the first test: Women ages 21 through 29 should have a Pap test every 3 years. Exoprts do not agree on whether HPV testing is recommended for this age group. Women ages 30 through 65 should be screened with either a Pap test every 3 years or the HPV test every 5 years or both tests every 5 years (called cotesting ). Women who have been treated for precancer (cervical dysplasia) should continue to have Pap tests for 20 years after treatment or until age 65, whichever is longer. If you have had your uterus and cervix removed (total hysterectomy), and you have not been diagnosed with cervical cancer or precancer (high grade cervical neoplasia), you do not need cervical cancer screening. CHOLESTEROL SCREENING Cholesterol screening should begin at: Age 45 for women with no known risk factors for coronary heart disease Age 20 for women with known risk factors for coronary heart disease Repeat cholesterol screening should take place: Every 5 years for women with normal cholesterol levels More often if changes occur in lifestyle (including weight gain and diet) More often if you have diabetes, heart disease, kidney problems, or certain other conditions DIABETES SCREENING You should be screened for diabetes starting at age 35 and then repeated every 3 years if you have no risk factors for diabetes. Screening may need to start earlier and be repeated more often if you have other risk factors for diabetes, such as: You have a first degree relative with diabetes. You are overweight or have obesity. You have high blood pressure, prediabetes, or a history of heart disease. Screening for diabetes should be done if you are planning to become and you are overweight and have other risk factors such as high blood pressure. DENTAL EXAM Go to the dentist once or twice every year for an exam and cleaning. Your dentist will evaluate if you need more frequent visits. EYE EXAM Have an eye exam every 5 to 10 years before age 40. If you have vision problems, have an eye exam every 2 years or more often if recommended by your provider. You should have an eye exam that includes an examination of your retina (back of your eye) at least every year if you have diabetes. IMMUNIZATIONS Commonly needed vaccines include: Flu shot: get one every year. COVID-19 vaccine: ask your provider what is best for you. Tetanus-diphtheria and acellular pertussis (Tdap) vaccine: have one at or after age 19 as one of your tetanus-diphtheria vaccines if you did not receive it as an adolescent. Tetanus-diphtheria: have a booster (or Tdap) every 10 years. Varicella vaccine: receive 2 doses if you never had chickenpox or the varicella vaccine. Hepatitis B vaccine: receive 2, 3, or 4 doses, depending on your exact circumstances. Measles, mumps, and rubella (MMR) vaccine: receive 1 to 2 doses if you are not already immune to MMR. Your provider can tell you if you are immune. Ask your provider about the human papillomavirus (HPV) vaccine if: You have not received the HPV vaccine in the past You have not completed the full vaccine series (you should catch up on this shot) Ask your provider if you should receive other immunizations if you have certain health problems that increase your risk for some diseases such as pneumonia. INFECTIOUS DISEASE SCREENING Women who are sexually active should be screened for chlamydia and gonorrhea up until age 25. Women 25 years and older should be screened for chlamydia and gonorrhea if at high risk. Screening for hepatitis C: All adults ages 18 to 79 should get a one-time test for hepatitis C. people should be screened at every . Screening for human immunodeficiency virus (HIV): All people ages 15 to 65 should get a one-time test for HIV. Depending on your lifestyle and medical history, you may also need to be screened for infections such as syphilis and HIV, as well as other infections. PHYSICAL EXAM All adults should visit their provider from time to time, even if they are healthy. The purpose of these visits is to: Screen for disease Assess your risk of future medical problems Encourage a healthy lifestyle Update your vaccinations and other preventive care services Maintain a relationship with a provider in case of an illness Your height, weight, and BMI should be checked at every exam. During your exam, your provider may ask you about: Depression and anxiety Diet and exercise Alcohol and tobacco use Safety issues, such as using seat belts, smoke detectors, and intimate partner violence Your medicines and risk for interactions SKIN SELF-EXAM Your provider may check your skin for signs of skin cancer, especially if you're at high risk, such as if you: Have had skin cancer before Have close relatives with skin cancer Have a weakened immune system OTHER SCREENING Talk with your provider about colon cancer screening if you have a strong family history of colon cancer or polyps, or if you have had inflammatory bowel disease or polyps yourself. Routine bone density screening of women under 40 is not recommended. Quality Reporting (2019) Adult ([facility] 138//) Smoking risk assessment performed?: Yes Patient Tobacco Use Status: Never used Tobacco Depression screening performed: Yes Screen Results: Yes Negative screen Systolic BP not done?: No Diastolic BP not done?: No Body Mass Index: 32.5 BMI screening not done: No BMI High - Follow Up: Yes High-plan (lifestyle ) Sexual Activity Screening ([facility] 153) Sexually active?: Yes Immunizations ([facility] 147, 117) Annual Influenza Vaccine: Yes Measles Antibody Test: No Mumps Antibody Test: No Rubella Antibody Test: No Varicella Antibody Test: No Anti Hepatitis A IgG Antigen test: No Anti Hepatitis B Virus Surface Ab test: No Fall Risk Screening ([facility] 139) Last assessed Fall Risk: 05/23/24 Fall risk assessment: No Falls in past year Dementia Assessment ([facility] 149) Cognitive assessment recorded: Yes Assessment of cognition with standardized tool: Yes Depression/Bipolar (159/160/161/177) PHQ-9: Total score: 0 Ophthalmol:Cataracts Visual Acuity (133) Visual acuity exam performed: Yes (active w outside Optho, glasses, UTD on exam 2023) Coding Level of Care Code Medicare Subsequent (G0439) Est Pt Level 4 (25058) Diagnoses Encounter for subsequent annual wellness visit (AWV) in Medicare patient Z00.00 Left leg pain M79.605 Heart murmur on physical examination R01.1 Primary hypertension I10 Hypertension type: primary hypertension Mixed hyperlipidemia E78.2 Hyperlipidemia type: mixed hyperlipidemia BMI 32.0-32.9,adult Z68.32 Class 1 obesity due to excess calories with serious comorbidity and body mass index (BMI) of 32.0 to 32.9 in adult E66.811; E66.09; Z68.32 Obesity type: due to excess calories Serious obesity comorbidity presence: with serious comorbidity Osteopenia, unspecified location M85.80 Osteopenia location: unspecified Mild intermittent asthma in adult without complication J45.20 Prediabetes R73.03 History of colon polyps Z86.0100 Family history of lung cancer Z80.1 Family history of malignant neoplasm of endometrium Z80.49 Tetanus, diphtheria, and acellular pertussis (Tdap) vaccination declined Z28.21 CPT Codes Advance Care Planning - Time spent: 1-15 minutes, not on file ([id number]) Additional Codes PHQ-9 - 13608 - PHQ-9 Billing: Yes ([id number]) Advance Care Planning Advance Care Planning discussion: Exists, not on file Date of discussion: 05/23/24 Forms completed: Health Care Proxy, MOLST and Living will Time spent: 1-15 minutes, not on file Actual minutes spent: 3
[2024-05-23 11:58] VITALS: BMI 32.5
== END 2024-05-23 10:41 | disposition home or self-care (01) ==
PROVIDERS: PCP Nurse Practitioner Family; Visit Provider Nurse Practitioner Family
DX: Z00.00 Encounter for general adult medical examination without abnormal findings (principal); M79.605 Pain in left leg; E66.811 Obesity, class 1; Z68.32 Body mass index [BMI] 32.0-32.9, adult; R01.1 Cardiac murmur, unspecified; I10 Essential (primary) hypertension; E78.2 Mixed hyperlipidemia; M85.80 Other specified disorders of bone density and structure, unspecified site; J45.20 Mild intermittent asthma, uncomplicated; R73.03 Prediabetes; Z86.0100 Personal history of colon polyps, unspecified; Z80.1 Family history of malignant neoplasm of trachea, bronchus and lung

== ENCOUNTER → 2024-05-23 09:46 | Outpatient (BNVA) | payer MEDICARE, MEDICAID, SELFPAY | PROVIDERS: PCP Nurse Practitioner Family; Visit Provider Nurse Practitioner Family | DX: Z00.00 Encounter for general adult medical examination without abnormal findings (principal); M79.605 Pain in left leg; R01.1 Cardiac murmur, unspecified; I10 Essential (primary) hypertension; E78.2 Mixed hyperlipidemia; E66.09 Other obesity due to excess calories; Z68.32 Body mass index [BMI] 32.0-32.9, adult; M85.80 Other specified disorders of bone density and structure, unspecified site; J45.20 Mild intermittent asthma, uncomplicated; R73.03 Prediabetes; Z86.0100 Personal history of colon polyps, unspecified; Z80.1 Family history of malignant neoplasm of trachea, bronchus and lung; Z80.49 Family history of malignant neoplasm of other genital organs; Z71.3 Dietary counseling and surveillance | CPT/HCPCS: 96127; 99212 ==

== ENCOUNTER → 2024-06-03 09:50 | Outpatient (BNV) | payer MEDICARE, MEDICAID, SELFPAY | PROVIDERS: PCP Nurse Practitioner Family; Visit Provider Internal Medicine | DX: R01.1 Cardiac murmur, unspecified (principal) | CPT/HCPCS: 93306 ==

== ENCOUNTER → 2024-06-05 10:00 | Outpatient (BNV) | payer MEDICARE, MEDICAID, SELFPAY | PROVIDERS: PCP Nurse Practitioner Family; Visit Provider Internal Medicine | DX: Z12.31 Encounter for screening mammogram for malignant neoplasm of breast (principal) | CPT/HCPCS: 77063; 77067 ==

== ENCOUNTER 2024-06-12 12:34 | Outpatient (AMB) | payer MEDICARE, MEDICAID, SELFPAY ==
--- NOTE | 2024-06-12 12:40 | MHC.OFFVIS ---
Intake Visit Reasons: Ultrasound results Accompanied by: Self / Same As Patient Allergies Sulfa (Sulfonamide Antibiotics) Allergy (Intermediate, Verified 06/12/24 12:40) rash latex [LATEX] Allergy (Unknown, Verified 06/12/24 12:40) RASH Latex Allergy (Unknown, Uncoded 05/23/24 10:12) Rash HPI Comments Details: Presenting for follow-up regarding her pelvic pain. The patient is doing well and her pelvic pain has resolved completely. The following workup was done so far: Last visit urine dip was negative. Pelvic ultrasound showed the following: Uterus measures 6.1 x 2.3 x 3.5 cm and is anteverted with a normal endometrium of 3 mm in thickness. Some small peripheral myometrial calcifications may be present. No uterine mass. Neither ovary could be seen. No free fluid present in the cul-de-sac. [facility] Medical History Asthma HTN (hypertension) High cholesterol Surgical History H/O tubal ligation Family History Mother HTN (hypertension) Uterus cancer Sister Uterus cancer Social History Household Members: Spouse Household Members Other:: grandauthers Both parents involved: No Caregiver staying overnight: No Housing: House Are you a primary rn care transition to a significant other at home: No Do you presently have visiting nurse or other home services: No 75 years or older and lives alone: No Alcohol intake: current Alcohol intake frequency: 3 or more drinks per day Patient Tobacco Use Status: Never used Tobacco e-Cigarette/Vaping Use: Never Used Current occupational status: retired Sexual orientation: Straight/Heterosexual Gender identity: Female Cognitive needs: No Hearing needs: No Vision needs: No Review of Systems Const All systems reviewed & are unremarkable except as noted in HPI and below Reports as per HPI and Reports no additional complaints GI Reports no additional complaints Reports no additional complaints Quality Reporting (2019) Adult ([facility] 138/06/22/68) Smoking risk assessment performed?: Yes Patient Tobacco Use Status: Never used Tobacco Assessment & Plan Assessment & Plan (1) Pelvic pain: Code(s): R10.2 - Pelvic and perineal pain Category: Medical Plan: Discussed with the patient the results of the workup done including negative urine dip and pelvic ultrasound. Differential diagnosis of punch box tender causes that have not be ruled out yet include but not limited to pelvic adhesions or other. Recommended for the patient in case pelvic pain recurs to see her PCP for further workup for non punch box tender causes; if the all the results are negative and the patient's pelvic pain is persistent, instructions given to patient to call back for further testing. Meanwhile, instructions were given the patient to go to emergency room or call in case of fever above 100.4, heavy vaginal bleeding, persistence or worsening of her pelvic pain. All questions answered, the patient verbalized understanding. Coding Level of Care Code Est Pt Level 3 (67207) Diagnoses Pelvic pain R10.2
--- OUTSIDE RECORDS SUMMARY | 2024-06-12 14:00 | XMS_ITS | Clinical Summary ---
Author Organization [facility] Address [address] [place] [address] Care Team Providers Care Pediatric Psychologist Name Role Phone Community, Pcp Primary Care Provider Unavailabl e Allergies Active Allergy Reactions Severity Noted Date Comments Latex Rash/Dermatitis Low 08/16/2007 Sulfa Drugs 03/02/2016 hives Medications Medication Sig Dispensed Refills Start Date End Date Status Cholecalciferol (VITAMIN D OR) Take by mouth. 0 Active triamcinolone (KENALOG) 0.1 % lotion Apply topically 3 times daily. 0 Active acetaminophen (MAPAP) 500 MG tablet Take 1 Tab by mouth every 6 hours as needed for Pain for up to 10 days. 60 Tab 0 05/20/2020 Active simvastatin (ZOCOR) 40 MG tabletIndications:Hy perlipidemia, unspecified hyperlipidemia type TAKE 1 TABLET BY MOUTH EVERYDAY AT BEDTIME 90 tablet 1 05/18/2021 Active albuterol (PROVENTIL) (2.5 MG/3ML) 0.083% nebulizer solution Take 1 Vial by nebulization every 4 hours as needed for Wheezing. 360 mL 1 06/15/2021 Active ALBUTEROL SULFATE (ProAir HFA) 108 (90 Base) MCG/ACT Aero SolnIndications:RAD (reactive airway disease) with wheezing, mild intermittent, with acute exacerbation Inhale 2 Puffs into the lungs every 4 hours as needed for Cough or Wheezing. 8.5 g 1 06/15/2021 Active cetirizine (ZYRTEC) 10 MG tablet TAKE 1 TABLET BY MOUTH EVERY DAY 90 tablet 1 06/21/2021 Active ramipril (ALTACE) 5 MG capsuleIndications:E ssential hypertension, benign TAKE 1 CAPSULE BY MOUTH EVERY DAY 90 capsule 1 07/07/2021 Active Active Problems Problem Noted Date Prediabetes 04/29/2020 RAD (reactive airway disease ) with wheezing, mild intermittent, with acute exacerbation 07/20/2017 Adjustment reaction with anxiety and dep ression 02/02/2015 Essential hypertension, benign 9 Other and unspecified hyperlipidemia Tubular adenoma 08/23/2007 Overview: Removed by Dr. Tobar, 2007. Negative colonoscopy 08/22/2012, no colon cancer screening needed for 10 years. Heart murmur Overview: since in an infant Immunizations Name Administration Dates Next Due COVID-19 (Pfizer) 08/17/2020,07/26/2020 Influenza Vaccine-preservati ve Free-quadrivalent 4 Years 04/12/2019 Influenza vaccine high dose age 65 and over 01/30 Pneumoccoccal(Adult) Polysaccharide PPSV23 04/29,04/12/2019 Shingrix (Recombinant zoster vaccine) 10/31/2020 ,03/02/2020 Tdap 01/14/2013 Family History Medical History Relation Name Comments Cancer, Other Brother 3 Cancer of the Lung Brother 4 keke [place] Brother 5 gilbert Cholesterol Level Brother 6 dasha Asthma Daughter 3 aretha [place] Father copd Father Cancer of the Lung Mother Cancer, Other Mother angina Mother Cancer, Other Paternal Grandmother stomac h Uterine Cancer Sister CA Breast Negative Hx CA Colon Negative Hx CA Ovarian Negative Hx Relation Name Status Comments Brother 1 Alive Brother 2 Alive Brother 3 (Age 42) lung cance r Brother 4 Brother 5 Brother 6 Daughter 1 Alive Daughter 2 Alive well Daughter 3 Father COPD Maternal Grandfather Maternal Grandmother Mother Paternal Grandfather Paternal Grandmother Sister Alive well Son Alive well Social History Tobacco Use Types Packs/Day Years Used Date Smoking Tobacco: Never Smokeless Tobacco: Never Comments:passive exposure as a child Alcohol Use Standard Drinks/Week Comments Yes 5 (1 standard drink = 0.6 oz pur e alcohol) beers 7/week Alcohol Habits Answer Date Recorded How often do you have a drin k containing alcohol? 4 or more times a week 04/12/2019 How many drinks containing a lcohol do you have on a typical day when you are drinking? 1 or 2 04/12/2019 How often do you have six or more drinks on one occasion? Not asked Sex Assigned at Date Recorded Not on file Last Filed Vital Signs Vital Sign Reading Time Taken Comments Blood Pressure 136/88 03/29/2021 11:02 AM EST Pulse 78 03/29/2021 11:02 AM EST Temperature 36.2 ??C (97.1 ??F) 03/29/2021 11:[address] Respiratory Rate 16 03/29/2021 11:02 AM EST Oxygen Saturation 98% 11/26/2020 4:06 PM EDT Inhaled Oxygen Concentration - - Weight 89.9 kg (198 lb 4 oz) 03/29/2021 11:02 AM EST Height 165.1 cm (5' 5 ) 03/29/2021 11:02 AM EST Body Mass Index 32.99 03/29/2021 11:02 AM EST Plan of Treatment Health Maintenance Due Date Last Done Comments PNEUMOCOCCAL VACCINE (2 - PCV) 04/29/2021 04/29/2020 , 04/12/2019 MAMMOGRAM 05/14/2022 05/14/2021, 03/31, 11/13/2018, Additional history exists COLON CANCER SCREENING 08/22/2022 3, 08/22/2012, 08/16/2007 BONE DENSITY SCREENING 11/17/2022 11/17/2020, 2010 DTAP/TDAP/TD (2 - Td or Tdap) 01/14/2023 01/14/2013 Covid-19 Vaccine (3 - 2022-2 4 season) 2023 08/17/2020, 07/26/2020 INFLUENZA (#1) 2023 02/26/2020 (Comp leted), 02/26/2020, 04/12/2019 BMI CHECK/ADVISE 05/01/2024 03/29/2021, , 02/26/2020, Additional history exists CHOLESTEROL SCREENING 04/27/2026 04/27/2021 , 11/11/2019, 04/12/2019, Additional history exists HEPATITIS C SCREENING Completed 09/05/2012 SHINGLES VACCINE Completed 10/31/2020, 03/02/2020 Care Teams Pediatric Psychologist Relationship Specialty Start Date End Date Community, Pcp PCP - General Internal Medicine 08/20/21
--- OUTSIDE RECORDS SUMMARY | 2024-06-12 14:00 | XMS_ITS | Encounter Summary ---
Author Organization [facility] Address [address] [place] [address] Care Team Providers Care Texturing Machine Fixer Name Role Phone Amanda Arteaga MD Primary Care Provider Un available Community, Pcp Primary Care Provider Unavailabl e Encounter Details Date Type Department Care Team Description 08/06/2014 Orders Only Medicine/Pediatrics - [address] [id number] Hardeep Bragg PA-C Sore throat (Primary Dx) Social History Tobacco Use Types Packs/Day Years [...] Assigned at Date Recorded Not on file documented as of this encounter Plan of Treatment Not on file documented as of this encounter Visit Diagnoses Diagnosis Sore throat- Primary Acute pharyngitis documented in this encounter Care Teams Texturing Machine Fixer Relationship Specialty Start Date End Date Amanda Arteaga MD PCP - General 02/14/07 08/19/21 Community, Pcp PCP - General Internal Medicine 08/20/21 documented as of this encounter
== END 2024-06-12 13:03 | disposition home or self-care (01) ==
PROVIDERS: PCP Nurse Practitioner Family; Visit Provider Obstetrics & Gynecology
DX: R10.2 Pelvic and perineal pain (principal)
CPT/HCPCS: 99213

== ENCOUNTER → 2024-06-12 12:34 | Outpatient (BNVA) | payer MEDICARE, MEDICAID, SELFPAY | PROVIDERS: PCP Nurse Practitioner Family; Visit Provider Obstetrics & Gynecology | DX: R10.2 Pelvic and perineal pain (principal) | CPT/HCPCS: 99212 ==

== ENCOUNTER 2024-07-18 14:46 | Outpatient (AMB) | payer MEDICARE, MEDICAID, SELFPAY ==
--- NOTE | 2024-07-18 14:48 | MHC.PC.OV ---
Vital Signs 07/18/24 14:52 Height 5 ft 5 in Weight 195 lb BMI 32.4 BP 138/76 Blood Pressure Location Lt brachial Position Sitting Respiration 13 Pulse 76 Pulse Source Pulse Oximeter Temp 98.2 F Temp Source Oral Pulse Oximetry (%) 97 Oxygen Delivery Method Room Air Intake Visit Reasons: radicular low back pain Intake Note: Patient complaining of lower back pain radiating down both legs x 1 month Sr Risk Management Consultant Required: No Allergies Sulfa (Sulfonamide Antibiotics) Allergy (Intermediate, Verified 07/18/24 15:20) rash latex [LATEX] Allergy (Unknown, Verified 07/18/24 15:20) RASH Latex Allergy (Unknown, Uncoded 07/18/24 15:20) Rash Medication List - Last Reconciled 07/18/24 by DEVONTE Rosas- albuterol sulfate 90 mcg/actuation 2 puffs inhalation Q6H PRN beclomethasone dipropionate 80 mcg/actuation (Qvar RediHaler) 2 inhalations inhalation BID budesonide 180 mcg/actuation (Pulmicort Flexhaler) 1 inh inhalation BID cetirizine (Allergy Relief (cetirizine)) 10 mg PO DAILY PRN cholecalciferol (vitamin D3) 25 mcg PO DAILY cyanocobalamin (vitamin B-12) 500 mcg PO DAILY ramipril 5 mg PO DAILY Tobacco use date assessed: 07/18/24 Fall risk assessment: No Falls in past year Last assessed Fall Risk: 07/18/24 Dental Screening Dental Screen Date: 07/18/24 Did you have a dental visit in the last 12 months?: Yes Did you have a dental problem in the last 6 months where you did not have access to dental care?: No Was dental information given to patient?: Patient has dentist HPI HPI Comments History of Present Illness Details 68-year-old female with hypertension, hyperlipidemia, asthma, heart murmur, osteopenia, prediabetes, history of neck fracture as a child, edematous colon polyp, family hx of lung ca, family hx of endometrial cancer, eczema Presenting with complaints of radicular low back pain. - Symptoms commenced in May, initially affecting the left buttocks and posterior left upper leg, believed to be linked to magnesium & statin use. - Patient noted pain diminution after ceasing magnesium; however, pain worsened and began radiating to the right buttocks and thigh. - Describes inner thigh discomfort as a ?toothache? with some tingling and reports bending forward increases pain. - Aleve offers limited relief. - Denies any fever, chills, urinary or fecal incontinence. - Previous issue of pelvic pressure but recent OBGYN assessment was unremarkable. This is now resolved. - She stopped Statin June 29 to see if this would help; it did not improve her sx. - Denies overt injury or loss of function. Physical Exam General: Well developed, well nourished, in no acute distress. Appears stated age. Head: Normocephalic, atraumatic. Eyes: Pupils are equal, round and reactive to light and accommodation. Neck: FROM MSK: No spinal tenderness w/ palpation. Points to transverse low back more specifically middle low back when showing me where her pain is. No paraspinal tenderness. No pain over hips. HENDERSON x 4. Normal strength BLE. Decreased reflexes. Normal weight bearing. PP intact. Skin intact. SLR + bilat causing pain in posterior upper legs and some in low back. No edema BLE. Discussion Notes I discussed the patient's current issue of radicular low back pain, the plan to initiate treatment with meloxicam 50 mg once daily, emphasizing the necessity to take it with food and avoid concurrent NSAID use. Importance of obtaining an MRI of the lumbar spine was stressed, with awareness of the requirement for insurance authorization. I explained that if authorization is denied, I will refer her to [facility] Pain Management. I advised seeking emergency care should symptoms worsen or if bowel/bladder issues occur. Agreed on follow-up arrangement post-MRI results. Recommend restarting statin. The patient agreed with the outlined plan. Assessment and Plan 1. Radicular Low Back Pain: Initiated meloxicam 50 mg daily with food; avoid other NSAIDs. Ordered lumbar MRI pending insurance authorization; planned referral to Pain Management if not authorized. Advised seeking emergency care for significant symptom changes. Arrange follow-up post-MRI results. 2. History of Pelvic Pressure: OBGYN evaluation was normal. No further concerns unless symptoms change. Patient Instructions - Take meloxicam 50 mg once daily with food. - Avoid other NSAIDs while taking meloxicam. APAP prn break through pain. - Monitor for any new symptoms such as loss of function, bowel, or bladder incontinence, and seek emergency care if these occur. - Follow up will be arranged after MRI results are available. Consent Obtained patient consent for treatment with meloxicam, including understanding to take with food and avoid other NSAIDs to reduce gastrointestinal risks. Informed the patient that an MRI requires insurance authorization and discussed alternative referral to [facility] Pain Management if necessary. This plan was agreed upon by the patient. Patient was informed and verbally consented to the use of an ambient scribe for clinic note documentation during this visit. Total time spent caring for the patient today was 30 minutes. This includes time spent before the visit reviewing the chart, time spent during the visit, and time spent after the visit on documentation, reviewing laboratory results, diagnostic imaging, medications, performing a medically necessary evaluation, counseling on diagnoses, care coordination, ordering appropriate tests, ordering appropriate medications, review of tests performed by other providers, reporting test results with the patient, communication with other healthcare providers. [facility] Medical History Asthma HTN (hypertension) High cholesterol Surgical History H/O tubal ligation Family History Mother HTN (hypertension) Uterus cancer Sister Uterus cancer Social History Household Members: Spouse Household Members Other:: grandauthers Both parents involved: No Caregiver staying overnight: No Housing: House Are you a primary memory care program resident to a significant other at home: No Do you presently have visiting nurse or other home services: No 75 years or older and lives alone: No Alcohol intake: current Alcohol intake frequency: 3 or more drinks per day Patient Tobacco Use Status: Never used Tobacco e-Cigarette/Vaping Use: Never Used Current occupational status: retired Sexual orientation: Straight/Heterosexual Gender identity: Female Cognitive needs: No Hearing needs: No Vision needs: No Questionnaire PHQ-9 Over the last 2 weeks, how often have you been bothered by any of the following problems? 1. Little interest or pleasure in doing things: not at all 2. Feeling down, depressed, or hopeless: not at all 3. Trouble falling or staying asleep, or sleeping too much: not at all 4. Feeling tired or having little energy: not at all 5. Poor appetite or overeating: not at all 6. Feeling bad about yourself - or that you are a failure or have let yourself or your family down: not at all 7. Trouble concentrating on things, such as reading the newspaper or watching television: not at all 8. Moving or speaking so slowly that other people could have noticed. Or the opposite - being so fidgety or restless that you have been moving around a lot more than usual: not at all 9. Thoughts that you would be better off or of hurting yourself in some way: not at all Total score: 0 24231 - PHQ-9 Billing: Yes Source: Developed by Drs. Miguelangel Bales, Kathleen Curry, Leonides Alves and colleagues, with an educational veronica from [employer]. Thrive Questionnaire Date Thrive assessed: 07/18/24 I am a: Patient What is your living situation today?: I have a steady place to live Within the past 12 months, did the food you bought not last and you didn't have the money to get more?: Never true Within the past 12 months, did you worry whether your food would run out before you got money to buy more?: Never true Do you have trouble paying for medicines?: No Do you have trouble getting transportation to medical appointments?: No Do you have trouble paying your heating and electricity bill?: No Do you have trouble taking care of your child, family member or friend?: No Do you have trouble with day-to-day activities such as bathing, preparing meals, shopping, managing finances, etc.?: No Are you currently unemployed and looking for a job?: No Are you interested in more education?: No Please select the resources that you would like help with: None Currently or been in a relationship where the following occur: No concerns reported THRIVE Score: 0 EVELYN-7 AMB Questionnaire EVELYN-7 Date EVELYN - 7 assessed: 07/18/24 Feeling nervous, anxious, or on edge: 0 = Not at all Not being able to stop or control worryin = Not at all Worrying too much about different things: 0 = Not at all Trouble relaxin = Not at all Being so restless that it is hard to sit still: 0 = Not at all Becoming easily annoyed or irritable: 0 = Not at all Feeling afraid as if something awful might happen: 0 = Not at all Total EVELYN-7 score (0-4 normal; 5-9 mild; 10-14 moderate; 15-21 severe): 0 Source: Developed by Drs. Miguelangel Bales, Kathleen Curry, Leonides Alves and colleagues, with an educational veronica from [employer]. EVELYN-7 Assessment Billing EVELYN-7 Assessment Tool: EVELYN-7 Assessment 57722 Physical exam (Primary Care) Vital Signs: Last Vital Signs Temp 98.2 F 07/18/24 14:52 Pulse 76 07/18/24 14:52 Resp 13 07/18/24 14:52 BP 138/76 07/18/24 14:52 Pulse Ox 97 07/18/24 14:52 Oxygen Delivery Method Room Air 07/18/24 14:52 BMI result Body Mass Index 32.4 Tobacco/Smoking Status: Tobacco use Status Tobacco use date assessed 07/18/24 07/18/24 14:53 Patient Tobacco Use Status Never used Tobacco 07/18/24 14:53 e-Cigarette/Vaping Use Never Used 07/18/24 14:53 PHQ-9: PHQ-9 Score PHQ-9: Total score 0 07/18/24 15:14 Thrive Assessment: Date of Thrive Assessment Date Thrive assessed 07/18/24 07/18/24 14:53 Currently or been in a relationship where the following occur: No concerns reported Coding Level of Care Code Est Pt Level 4 (45210) Complex EM visit Add On G2211 Diagnoses Low back pain radiating to both legs M54.50; M79.604; M79.605 Paresthesia of saddle area R20.2 Additional Codes EVELYN-7 Assessment Billing - EVELYN-7 Assessment Tool: EVELYN-7 Assessment 60234 ([id number]) PHQ-9 - 96762 - PHQ-9 Billing: Yes ([id number]) Assessment & Plan Assessment & Plan (1) Low back pain radiating to both legs: Code(s): M54.50 - Low back pain, unspecified; M79.604 - Pain in right leg; M79.605 - Pain in left leg Category: Medical (2) Paresthesia of saddle area: Code(s): R20.2 - Paresthesia of skin Category: Medical Plan . Orders: Orders MR lumbar spine wo con Today M54.50 - Low back pain, unspecified, M79.604 - Pain in right leg, M79.605 - Pain in left leg, R20.2 - Paresthesia of skin Medications: New meloxicam 15 mg PO DAILY 90 tabs 0RF
[2024-07-18 14:52] VITALS: BP 138/76; PULSE 76; RESP 13; TEMP 36.8; O2SAT 97; BMI 32.4
--- OUTSIDE RECORDS SUMMARY | 2024-07-18 17:20 | XMS_ITS | Encounter Summary ---
Author Organization [facility] Address [address] [place] [address] Care Team Providers Care Electric Blanket Packer Name Role Phone Amanda Arteaga MD Primary Care Provider Un available Community, Pcp Primary Care Provider Unavailabl e Encounter Details Date Type Department Care Team Description 05/12/2020 Orders Only Medical Records [address] [place] [address] Amanda Arteaga MD Social History Tobacco Use Types Packs/Day Years [...] Assigned at Date Recorded Not on file COVID-19 Exposure Response Date Recorded In the last month, have you been in contact with someone who was confirmed or suspected to have Coronavirus / COVID-19? No / Unsure 04/29/2020 8:36 AM EST documented as of this encounter Plan of Treatment Not on file documented as of this encounter Procedures Procedure Name Priority Date/Time Associated Diagnosis Comments OUTSIDE MAMMO Routine 04/14/2020 documented in this encounter Results * OUTSIDE MAMMO (04/14/2020) Amanda Arteaga MD RADIOLOGY documented in this encounter Visit Diagnoses Not on filedocumented in this encounter Care Teams Electric Blanket Packer Relationship Specialty Start Date End Date Amanda Arteaga MD PCP - General 02/14/07 08/19/21 [facility], Pcp PCP - General Internal Medicine 08/20/21 documented as of this encounter
--- OUTSIDE RECORDS SUMMARY | 2024-07-18 17:20 | XMS_ITS | Encounter Summary ---
Author Organization [facility] Address [address] [place] [address] Care Team Providers Care Title I Instructional Assistant Name Role Phone Amanda Arteaga MD Primary Care Provider Un available Community, Pcp Primary Care Provider Unavailabl e Reason for Visit * Reason Comments refill request Encounter Details Date Type Department Care Team Description 02/25/2011 Refill Medicine/Pediatrics - [address] [id number] Juan Vasquez MD refill request Social History Tobacco Use Types Packs/Day Years Used Date Smoking Tobacco: Never Smokeless Tobacco: Never Comments:passive exposure as a child Alcohol Use Standard Drinks/Week Comments Yes 5 (1 standard drink = 0.6 oz pur e alcohol) weekends Alcohol Habits Answer Date Recorded How often [...] documented as of this encounter Visit Diagnoses Not on filedocumented in this encounter Care Teams Title I Instructional Assistant Relationship Specialty Start Date End Date Amanda Arteaga MD PCP - General 02/14/07 08/19/21 Community, Pcp PCP - General Internal Medicine 08/20/21 documented as of this encounter
== END 2024-07-18 15:25 | disposition home or self-care (01) ==
LOC: HO.HMCFM 14:47
PROVIDERS: PCP Nurse Practitioner Family; Visit Provider Nurse Practitioner Family
DX: M54.50 Low back pain, unspecified (principal); M79.604 Pain in right leg; M79.605 Pain in left leg; R20.2 Paresthesia of skin

== ENCOUNTER → 2024-07-18 14:46 | Outpatient (BNVA) | payer MEDICARE, MEDICAID, SELFPAY | PROVIDERS: PCP Nurse Practitioner Family; Visit Provider Nurse Practitioner Family | DX: M54.50 Low back pain, unspecified (principal); M79.604 Pain in right leg; M79.605 Pain in left leg; R20.2 Paresthesia of skin | CPT/HCPCS: 96127; 99212 ==

== ENCOUNTER 2024-07-25 18:19 | Outpatient (REF) | payer MEDICARE, MEDICAID, SELFPAY ==
--- NOTE | ~2024-07-25 | MR_ITS ---
EXAMINATION: MR LUMBAR SPINE WITHOUT CONTRAST CLINICAL INFORMATION: Low back pain. COMPARISON: None available. TECHNIQUE: MRI of the lumbar spine was obtained using routine sequences without contrast. FINDINGS: Last rib-bearing vertebra labeled T12. Bone marrow inhomogeneity. No bone marrow STIR signal abnormality. There is soft tissue STIR signal involving the posterior elements L4 and L5. Multilevel disc desiccation more pronounced at L4-5. There is grade 1 retrolisthesis at L4-5. Conus medullaris ends at pedicle of L2 with normal signal. T12-L1: No disc herniation. No neuroforamina stenosis. L1-2: No disc herniation. No neuroforamina stenosis. L2-3: Broad-based disc bulging. Facet joint and ligamentum flavum hypertrophy. No compression upon neural elements. L3-4: Broad-based disc bulging. Facet joint and ligamentum flavum hypertrophy. Reduced AP diameter of the thecal sac. No compression upon neural elements. L4-5: Broad-based disc bulging. Facet joint and ligamentum flavum hypertrophy. Reduced AP diameter of the thecal sac and the neural foramina resulting in central spinal canal stenosis likely encroaching the neural elements of the thecal sac and to a lesser extent the exiting nerve roots. L5-S1: Broad-based disc bulging. Facet joint hypertrophy. No central spinal canal stenosis. No neuroforamina stenosis. No prevertebral compartment hematoma, mass or fluid collection. There is fatty atrophy of the lower lumbar muscles from L4 to sacrum. Slight asymmetric volume loss right psoas muscle. MR/MR lumbar spine wo con IMPRESSION: Multilevel lumbar spondylosis resulting in grade 1 retrolisthesis L4-5 central spinal canal and bilateral neuroforamina stenosis at L4-5 encroaching likely compressing the neural elements. Electronically signed by: Elgin Yo MD 07/26/2024 07:13 AM EDT
== END 2024-07-25 18:20 | disposition home or self-care (01) ==
LOC: HO.MRI 18:19
PROVIDERS: Visit Provider Nurse Practitioner Family
DX: M54.50 Low back pain, unspecified (principal); M79.604 Pain in right leg; M79.605 Pain in left leg; R20.2 Paresthesia of skin
CPT/HCPCS: 72148

== ENCOUNTER → 2024-07-25 18:24 | Outpatient (BNV) | payer MEDICARE, MEDICAID, SELFPAY | PROVIDERS: Visit Provider Radiology Diagnostic Radiology | DX: M47.816 Spondylosis without myelopathy or radiculopathy, lumbar region (principal) | CPT/HCPCS: 72148 ==

== ENCOUNTER 2024-07-26 14:16 | Outpatient (AMB) | payer MEDICARE, MEDICAID, SELFPAY ==
--- NOTE | 2024-07-26 14:16 | A.OFFPC_ITS ---
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- albuterol sulfate 90 mcg/actuation 2 puffs inhalation Q6H PRN beclomethasone dipropionate 80 mcg/actuation (Qvar RediHaler) 2 inhalations inhalation BID budesonide 180 mcg/actuation (Pulmicort Flexhaler) 1 inh inhalation BID cetirizine (Allergy Relief (cetirizine)) 10 mg PO DAILY PRN cholecalciferol (vitamin D3) 25 mcg PO DAILY cyanocobalamin (vitamin B-12) 500 mcg PO DAILY meloxicam 15 mg PO DAILY ramipril 5 mg PO DAILY Tobacco use date assessed: 07/26/24 Fall risk assessment: No Falls in past year Last assessed Fall Risk: 07/26/24 Dental Screening Dental Screen Date: 07/26/24 Did you have a dental visit in the last 12 months?: Yes Did you have a dental problem in the last 6 months where you did not have access to dental care?: No Was dental information given to patient?: Patient has dentist HPI HPI Comments History of Present Illness Details 68-year-old female with hypertension, hy perlipidemia, asthma, heart murmur, osteopenia, prediabetes, history of neck fracture as a child, edematous colon polyp, family hx of lung ca, family hx of endometrial cancer, eczema Family hx: Son, Froilan, had stroke 06/2024 Telehealth visit to fu on radicular back pain MRI done - see results below. Discussed w/ her. She started meloxicam and is taking QD with food with almost immediate relief Able to bend and move without pain i have my life back Discussed management options 1) refer to spine/pain mgmt 2) nsaids and PT She opted for #2 At this time. At previous visit: Presenting with complaints of radicular low back pain. - Symptoms commenced in May, initial ly affecting the left buttocks and posterior left upper leg, believed to be linked to magnesium & statin use. - Patient noted pain diminution after ce asing magnesium; however, pain worsened and began radiating to the right buttocks and thigh. - Describes inner thigh discomfort as a ?toothache? with some tingling and reports bending forward increases pain. - Aleve offers limited relief. - Denies any fever, chills, urinary or f ecal incontinence. - Previous issue of pelvic pressure but recent OBGYN assessment was unremarkable. This is now resolved. - She stopped Statin June 29 to see if t his would help; it did not improve her sx. - Denies overt injury or loss of functio n. Physical Exam General: Well developed, well nourished, in no acute distress. Appears stated age. Head: Normocephalic, atraumatic. Eyes: Pupils are equal, round and reactive to light and accommodation. Neck: FROM MSK: No spinal tenderness w/ palpation. Points to transverse low back more specifically middle low back when showing me where her pain is. No paraspinal tenderness. No pain over hips. HENDERSON x 4. Normal strength BLE. Decreased reflexes. Normal weight bearing. PP intact. Skin intact. SLR + bilat causing pain in posterior upper legs and some in low back. No edema BLE. Plan: PT referral Cont meloxicam Edu on reasons to call/seek additional care RTO as scheduled, sooner PRN The visit was conducted via telehealth, and the documentation accurately reflects the information discussed during the session. The patient has been explained that this is an interactive (audio/video) telehealth encounter and what that consists of. The patient understands and wishes to proceed. [employer] platform was used. Total time spent caring for the patient today was 18 minutes. This includes time spent before the visit reviewing the chart, time spent during the visit, and time spent after the visit on documentation, reviewing laboratory results, diagnostic imaging, medications, performing a medically necessary evaluation, counseling on diagnoses, care coordination, ordering appropriate tests, ordering appropriate medications, review of tests performed by other providers, reporting test results with the patient, communication with other healthcare providers. [facility] Medical History Asthma HTN (hypertension) High cholesterol Surgical History H/O tubal ligation Family History Mother HTN (hypertension) Uterus cancer Sister Uterus cancer Social History Household Members: Spouse Household Members Other:: grandauthers Both parents involved: No Caregiver staying overnight: No Housing: House Are you a primary progressive care unit registered nurse to a significant other at home: No Do you presently have visiting nurse or other home services: No 75 years or older and lives alone: No Alcohol intake: current Alcohol intake frequency: 3 or more drinks per day Patient Tobacco Use Status: Never used Tobacco e-Cigarette/Vaping Use: Never Used Current occupational status: retired Sexual orientation: Straight/Heterosexual Gender identity: Female Cognitive needs: No Hearing needs: No Vision needs: No Questionnaire Thrive Questionnaire Date Thrive assessed: 07/18/24 EVELYN-7 AMB Questionnaire EVELYN-7 Date EVELYN - 7 assessed: 07/18/24 Source: Developed by Drs. Miguelangel Bales, Kathleen Curry, Leonides Alves and colleagues, with an educational veronica from [employer]. Physical exam (Primary Care) Tobacco/Smoking Status: Tobacco use Status Tobacco use date assessed 07/26/24 07/26/24 14:17 Patient Tobacco Use Status Never used Tobacco 07/26/24 14:16 e-Cigarette/Vaping Use Never Used 07/26/24 14:16 Thrive Assessment: Date of Thrive Assessment Date Thrive assessed 07/18/24 07/26/24 14:16 Telehealth Telehealth Telehealth Platform: [facility] Location of provider rendering services: practice address Location of patient: address on file Patient Identification confirmed using: Name, : Yes Telehealth method: voice only Patient verbally consented to treatment: Yes Patient verbally consented to billing insurance company: Yes Patient informed of any privacy concerns related to visit: Yes Minutes spent on Phone/Video with Pt.: 10 Results Reviewed Results Reviewed: [address] [address] Magnetic Resonance Report Signed Patient: Snehal Payton MR#: [id number] : 1955 Acct:[id number] Age/Sex: 68 / F ADM Date: 07/25/24 Loc: HO.MRI Attending Dr: Silvana LANZA Ordering Physician: Silvana Steven Date of Service: 07/25/24 Procedure(s): MR lumbar spine wo con Accession Number(s): [id number] cc: Silvana Steven~ EXAMINATION: MR LUMBAR SPINE WITHOUT CONTRAST CLINICAL INFORMATION: Low back pain. COMPARISON: None available. TECHNIQUE: MRI of the lumbar spine was obtained using routine sequences without contrast. FINDINGS: Last rib-bearing vertebra labeled T12. Bone marrow inhomogeneity. No bone marrow STIR signal abnormality. There is soft tissue STIR signal involving the posterior elements L4 and L5. Multilevel disc desiccation more pronounced at L4-5. There is grade 1 retrolisthesis at L4-5. Conus medullaris ends at pedicle of L2 with normal signal. T12-L1: No disc herniation. No neuroforamina stenosis. L1-2: No disc herniation. No neuroforamina stenosis. L2-3: Broad-based disc bulging. Facet joint and ligamentum flavum hypertrophy. No compression upon neural elements. L3-4: Broad-based disc bulging. Facet joint and ligamentum flavum hypertrophy. Reduced AP diameter of the thecal sac. No compression upon neural elements. L4-5: Broad-based disc bulging. Facet joint and ligamentum flavum hypertrophy. Reduced AP diameter of the thecal sac and the neural foramina resulting in central spinal canal stenosis likely encroaching the neural elements of the thecal sac and to a lesser extent the exiting nerve roots. L5-S1: Broad-based disc bulging. Facet joint hypertrophy. No central spinal canal stenosis. No neuroforamina stenosis. No prevertebral compartment hematoma, mass or fluid collection. There is fatty atrophy of the lower lumbar muscles from L4 to sacrum. Slight asymmetric volume loss right psoas muscle. MR/MR lumbar spine wo con IMPRESSION: Multilevel lumbar spondylosis resulting in grade 1 retrolisthesis L4-5 central spinal canal and bilateral neuroforamina stenosis at L4-5 encroaching likely compressing the neural elements. Electronically signed by: Elgin Yo MD 07/26/2024 07:13 AM EDT RP Coding Level of Care Code Tele Est Pt Level 3 (61729) Complex EM visit Add On G2211 Diagnoses Low back pain radiating to both legs M54.50; M79.604; M79.605 Assessment & Plan Assessment & Plan (1) Low back pain radiating to both legs: Comment: MRI 06/2024 MR/MR lumbar spine wo con IMPRESSION: Multilevel lumbar spondylosis resulting in grade 1 retrolisthesis L4-5 central spinal canal and bilateral neuroforamina stenosis at L4-5 encroaching likely compressing the neural elements Code(s): M54.50 - Low back pain, unspecified; M79.604 - Pain in right leg; M79.605 - Pain in left leg Category: Medical Plan: . Plan . Orders: Orders PT Evaluation and Treatment Today M54.50 - Low back pain, unspecified, M79.604 - Pain in right leg, M79.605 - Pain in left leg Medications: New rosuvastatin 40 mg PO DAILY 30 tabs 2RF
== END 2024-07-26 17:05 | disposition home or self-care (01) ==
LOC: HO.HMCFM 14:16
PROVIDERS: PCP Nurse Practitioner Family; Visit Provider Nurse Practitioner Family
DX: M54.50 Low back pain, unspecified (principal); M79.604 Pain in right leg; M79.605 Pain in left leg

== ENCOUNTER → 2024-07-26 14:16 | Outpatient (BNVA) | payer MEDICARE, MEDICAID, SELFPAY | PROVIDERS: PCP Nurse Practitioner Family; Visit Provider Nurse Practitioner Family ==

== ENCOUNTER 2024-09-13 10:52 | Outpatient (RCR) | payer MEDICARE, MEDICAID, SELFPAY | END 2024-11-07 12:34 | disposition home or self-care (01) | LOC: HO.PT 10:52 | PROVIDERS: PCP Nurse Practitioner Family; Visit Provider Nurse Practitioner Family | DX: M54.50 Low back pain, unspecified (principal); M79.604 Pain in right leg; M79.605 Pain in left leg | CPT/HCPCS: 97110; 97161 ==

== ENCOUNTER 2024-11-05 09:26 | Outpatient (REF) | payer MEDICARE, MEDICAID, SELFPAY ==
[2024-11-05 12:42] LABS: Alanine Aminotransferase 20 U/L (0-31); Albumin Level 4.4 g/dL (3.5-5.0); Alkaline Phosphatase 68 U/L (39-117); Anion Gap 12 (12-20); Aspartate Amino Transferase 22 U/L (5-31); Blood Urea Nitrogen 12 mg/dL (9-16); Calcium 9.6 mg/dL (8.4-10.2); Carbon Dioxide 27 mmol/L (22-29); Chloride 106 mmol/L (96-108); Cholesterol 240 mg/dL (<200); Estimated Glomerular Filt Rate > 60; HDL Cholesterol 70 mg/dL (>40); Potassium 4.6 mmol/L (3.3-5.1); Sodium 140 mmol/L (135-145); Total Protein 7.2 g/dL (6.5-8.0); Triglycerides 140 mg/dL (<150)
[2024-11-05 12:49] LABS: Hemoglobin A1C 145.2585 umol/L; Total Hemoglobin (HGBA1C) 3664.6430 umol/L
== END 2024-11-05 09:27 | disposition home or self-care (01) ==
LOC: HO.WFDLDS 09:26
PROVIDERS: Visit Provider Nurse Practitioner Family
DX: I10 Essential (primary) hypertension (principal); E78.2 Mixed hyperlipidemia; Z13.1 Encounter for screening for diabetes mellitus
CPT/HCPCS: 36415; 80053; 80061; 83036

== ENCOUNTER 2024-11-08 12:26 | Outpatient (AMB) | payer MEDICARE, MEDICAID, SELFPAY ==
--- NOTE | 2024-11-08 12:29 | MHC.PC.OV ---
Vital Signs 11/08/24 12:35 Height 5 ft 5 in Weight 194 lb 8 oz BMI 32.4 BP 126/70 Blood Pressure Location Lt brachial Position Sitting Respiration 12 Pulse 69 Pulse Source Pulse Oximeter Temp 97.1 F Temp Source Oral Pulse Oximetry (%) 99 Oxygen Delivery Method Room Air Intake Visit Reasons: 6 mo routine fu labs 1 week before 30 MIN Intake Note: 6 months follow up to review labs Pyrotechnician Required: No Allergies Sulfa (Sulfonamide Antibiotics) Allergy (Intermediate, Verified 11/08/24 12:31) rash latex (LATEX) Allergy (Unknown, Verified 11/08/24 12:31) RASH Latex Allergy (Unknown, Uncoded 11/08/24 12:31) Rash Medication List - Last Reconciled 11/08/24 by DEVONTE Rosas- albuterol sulfate 90 mcg/actuation 2 puffs inhalation Q6H PRN beclomethasone dipropionate 80 mcg/actuation (Qvar RediHaler) 2 inhalations inhalation BID budesonide 180 mcg/actuation (Pulmicort Flexhaler) 1 inh inhalation BID cetirizine (Allergy Relief (cetirizine)) 10 mg PO DAILY PRN cholecalciferol (vitamin D3) 25 mcg PO DAILY cyanocobalamin (vitamin B-12) 500 mcg PO DAILY meloxicam 15 mg PO DAILY ramipril 5 mg PO DAILY rosuvastatin 40 mg PO DAILY Tobacco use date assessed: 11/08/24 Fall risk assessment: No Falls in past year Last assessed Fall Risk: 11/08/24 Dental Screening Dental Screen Date: 11/08/24 Did you have a dental visit in the last 12 months?: Yes Did you have a dental problem in the last 6 months where you did not have access to dental care?: No Was dental information given to patient?: Patient has dentist HPI HPI Comments History of Present Illness Details 68-year-old female with hypertension, hyperlipidemia, asthma, heart murmur, osteopenia, prediabetes, history of neck fracture as a child, edematous colon polyp, family hx of lung ca, family hx of endometrial cancer, eczema Family hx: Son, Froilan, had stroke 06/2024 History of Present Illness - The patient is a 68 year old female presenting with a routine chronic disease follow-up. - Hyperlipidemia managed daily with rosuvastatin. Cholesterol levels increased. - Essential Hypertension controlled with ramipril. Blood pressure readings optimal. - Discontinued Vitamin D and B12 supplementation following increased outdoor activity & ^ Vit b12 on last lab check - Seasonal allergies managed with daily Zyrtec. - Asthma treated with Pulmicort; - Needs new dermatology referral for back growths, was seeing [facility], appt 10/2024 cancelled by office; would like to see [facility]. - Participation in physical therapy for back pain, improvement noted with meloxicam use. Review of Systems - Constitutional: Reports feeling good. - Eyes: No complaints reported. - Respiratory: Reports seasonal allergies, asthma management with maintenance and rescue inhalers. - Cardiovascular: Reports stable blood pressure with medication. - Musculoskeletal: Reports back pain, history of physical therapy. - Endocrine: Denies ongoing vitamin D or B12 supplementation. - Dermatological: Reports growths on back; missed dermatology appointment. - Other: Reports significant family medical events affecting emotional well-being. Exam awake alert NAD RRR, 2/6 murmur RSB LS CTAB No edema BLE Results - Labs: Cholesterol levels noted as increased to 240 mg/dL; LDL increased to 142 mg/dL. HDL improved to 70 mg/dL. Blood sugar elevated, A1c stable. - Tests and Diagnostics: Apolipoprotein test pending, potential referral for coronary calcium scoring based on genetics. - Labs: Total cholesterol increased to 240 mg/dL, LDL elevated to 142 mg/dL, HDL improved to 70 mg/dL, blood glucose elevated with stable A1c. - Tests and Diagnostics: Confirmation of need for apolipoprotein genetic testing. Discussion Notes I discussed the necessity to continue monitoring and managing hyperlipidemia, with further option to add Zetia as an adjunct therapy. We reviewed the possibility of apolipoprotein testing to assess genetic predisposition to heart disease. Dermatology referral was set up for evaluation of back growths. Discussed [id number] feedback suggesting quicker scheduling at [facility]. We reviewed her medication regimen, confirming adherence and refills needed for certain medications. We reached a shared decision to reassess labs in six months to determine further management, while continuing current therapies. The patient indicated ongoing familial stresses, and we explored possible support avenues including counseling for her partner. Assessment and Plan 1. Hyperlipidemia - Continue rosuvastatin; add Zetia. Re-evaluate with lipid profile. Add lipoproteins to next lab draw, if + consider Calcium score imaging 2. Essential Hypertension - Continue ramipril. Refill provided. 3. Vitamin D and B12 Deficiencies - Discontinued. Re-assess based on labs. 4. Seasonal Allergies - Continue Zyrtec as needed. 5. Asthma - Continue Pulmicort twice daily. Address [facility] insurance. 6. Skin lesions - Referral to dermatology. Patient Instructions - Continue taking rosuvastatin and ramipril daily as prescribed. - Add Zetia 10 mg once daily. - Use Pulmicort twice daily for asthma. - Take Zyrtec as needed for allergies. - Attend dermatology appointment for back growths evaluation. - Return for lab work in six months. Consent Patient was informed and verbally consented to the use of an ambient scribe for clinic note documentation during this visit. Total time spent caring for the patient today was 45 minutes. This includes time spent before the visit reviewing the chart, time spent during the visit, and time spent after the visit on documentation, reviewing laboratory results, diagnostic imaging, medications, performing a medically necessary evaluation, counseling on diagnoses, care coordination, ordering appropriate tests, ordering appropriate medications, review of tests performed by other providers, reporting test results with the patient, communication with other healthcare providers. [facility] Medical History Asthma HTN (hypertension) High cholesterol Surgical History H/O tubal ligation Family History Mother HTN (hypertension) Uterus cancer Sister Uterus cancer Social History Household Members: Spouse Household Members Other:: grandauthers Both parents involved: No Caregiver staying overnight: No Housing: House Are you a primary care team coordinator scheduler to a significant other at home: No Do you presently have visiting nurse or other home services: No 75 years or older and lives alone: No Alcohol intake: current Alcohol intake frequency: 3 or more drinks per day Patient Tobacco Use Status: Never used Tobacco e-Cigarette/Vaping Use: Never Used service: No Current occupational status: retired Sexual orientation: Straight/Heterosexual Gender identity: Female Cognitive needs: No Hearing needs: No Vision needs: No Questionnaire PHQ-9 Over the last 2 weeks, how often have you been bothered by any of the following problems? 1. Little interest or pleasure in doing things: not at all 2. Feeling down, depressed, or hopeless: not at all 3. Trouble falling or staying asleep, or sleeping too much: not at all 4. Feeling tired or having little energy: not at all 5. Poor appetite or overeating: not at all 6. Feeling bad about yourself - or that you are a failure or have let yourself or your family down: not at all 7. Trouble concentrating on things, such as reading the newspaper or watching television: not at all 8. Moving or speaking so slowly that other people could have noticed. Or the opposite - being so fidgety or restless that you have been moving around a lot more than usual: not at all 9. Thoughts that you would be better off or of hurting yourself in some way: not at all Total score: 0 Depression Screening Interpretation: Negative Depression Screening Done: Yes 62227 - PHQ-9 Billing: Yes Source: Developed by Drs. Miguelangel Bales, Kathleen Curry, Leonides Alves and colleagues, with an educational veronica from [employer] Document Preparation. Thrive Questionnaire Date Thrive assessed: 11/08/24 I am a: Patient What is your living situation today?: I have a steady place to live Within the past 12 months, did the food you bought not last and you didn't have the money to get more?: Never true Within the past 12 months, did you worry whether your food would run out before you got money to buy more?: Never true Do you have trouble paying for medicines?: No Do you have trouble getting transportation to medical appointments?: No Do you have trouble paying your heating and electricity bill?: No Do you have trouble taking care of your child, family member or friend?: No Do you have trouble with day-to-day activities such as bathing, preparing meals, shopping, managing finances, etc.?: No Are you currently unemployed and looking for a job?: No Are you interested in more education?: No Please select the resources that you would like help with: None Currently or been in a relationship where the following occur: No concerns reported THRIVE Score: 0 EVELYN-7 AMB Questionnaire EVELYN-7 Date EVELYN - 7 assessed: 07/11/25 Feeling nervous, anxious, or on edge: 0 = Not at all Not being able to stop or control worryin = Not at all Worrying too much about different things: 0 = Not at all Trouble relaxin = Not at all Being so restless that it is hard to sit still: 0 = Not at all Becoming easily annoyed or irritable: 0 = Not at all Feeling afraid as if something awful might happen: 0 = Not at all Total EVELYN-7 score (0-4 normal; 5-9 mild; 10-14 moderate; 15-21 severe): 0 Source: Developed by Drs. Miguelangel Bales, Kathleen Curry, Leonides Alves and colleagues, with an educational veronica from [employer] Document Preparation. EVELYN-7 Assessment Billing EVELYN-7 Assessment Tool: EVELYN-7 Assessment 47608 ACT Questionnaire In the past 4 weeks, how much of the time did your asthma keep you from getting as much done at work, school or at home?: None of the time During the past 4 weeks, how often have you had shortness of breath?: Not at all During the past 4 weeks, how often did your asthma symptoms wake you up at night or earlier than usual in the morning?: Not at all During the past 4 weeks, how often have you had to use your rescue inhaler or nebulizer medication?: Not at all How would you rate your asthma control during the past 4 weeks?: Completely controlled ACT Interpretation: Negative Score: 25 Physical exam (Primary Care) Vital Signs: Last Vital Signs Temp 97.1 F 11/08/24 12:35 Pulse 69 11/08/24 12:35 Resp 12 11/08/24 12:35 BP 126/70 11/08/24 12:35 Pulse Ox 99 11/08/24 12:35 Oxygen Delivery Method Room Air 11/08/24 12:35 BMI result Body Mass Index 32.4 Tobacco/Smoking Status: Tobacco use Status Tobacco use date assessed 11/08/24 11/08/24 12:33 Patient Tobacco Use Status Never used Tobacco 11/08/24 12:30 e-Cigarette/Vaping Use Never Used 11/08/24 12:30 PHQ-9: PHQ-9 Score PHQ-9: Total score 0 11/08/24 12:36 Depression Screening Interpretation: Negative Thrive Assessment: Date of Thrive Assessment Date Thrive assessed 11/08/24 11/08/24 12:30 Currently or been in a relationship where the following occur: No concerns reported Results Reviewed Results Reviewed: 11/05/24 Laboratory Result Units Range Interpretation Provider Comments Sodium Level 140 mmol/L (135-145) Potassium Level 4.6 mmol/L (3.3-5.1) Chloride Level 106 mmol/L (96-108) Carbon Dioxide Level 27 mmol/L (22-29) Anion Gap 12 (12-20) Blood Urea Nitrogen 12 mg/dL (9-16) Creatinine 0.72 mg/dL (0.5-1.4) Estimated Creatinine Clearance Calc Not Reportable Estimat Glomerular Filtration Rate > 60 Fasting Glucose 114 mg/dL (60-99) High Estimated Average Glucose 120 mg/dL Hemoglobin A1c Percent 5.8 % (<6.0) Calcium Level 9.6 mg/dL (8.4-10.2) Total Bilirubin 0.6 mg/dL (0.0-1.0) Aspartate Amino Transf (AST/SGOT) 22 U/L (5-31) Alanine Aminotransferase (ALT/SGPT) 20 U/L (0-31) Alkaline Phosphatase 68 U/L (39-117) Total Protein 7.2 g/dL (6.5-8.0) Albumin 4.4 g/dL (3.5-5.0) Triglycerides Level 140 mg/dL (<150) Cholesterol Level 240 mg/dL (<200) High LDL Cholesterol, Calculated 142 mg/dL (<100) High HDL Cholesterol 70 mg/dL (>40) Coding Level of Care Code Est Pt Level 5 (76797) Complex EM visit Add On G2211 Diagnoses Skin lesion L98.9 Mixed hyperlipidemia E78.2 Hyperlipidemia type: mixed hyperlipidemia Primary hypertension I10 Hypertension type: primary hypertension Prediabetes R73.03 Mild intermittent asthma in adult without complication J45.20 Additional Codes EVELYN-7 Assessment Billing - EVELYN-7 Assessment Tool: EVELYN-7 Assessment 98107 ([id number]) PHQ-9 - 13923 - PHQ-9 Billing: Yes ([id number]) Asthma Control Questionnaire - ACT Interpretation: Negative ([id number]) Assessment & Plan Assessment & Plan (1) Skin lesion: Comment: on back Code(s): L98.9 - Disorder of the skin and subcutaneous tissue, unspecified Category: Medical (2) HLD (hyperlipidemia): Code(s): E78.5 - Hyperlipidemia, unspecified Category: Medical Qualifiers: Hyperlipidemia type: mixed hyperlipidemia Qualified Code(s): E78.2 - Mixed hyperlipidemia (3) HTN (hypertension): Code(s): I10 - Essential (primary) hypertension Category: Medical Qualifiers: Hypertension type: primary hypertension Qualified Code(s): I10 - Essential (primary) hypertension (4) Prediabetes: Code(s): R73.03 - Prediabetes Category: Medical (5) Mild intermittent asthma in adult without complication: Code(s): J45.20 - Mild intermittent asthma, uncomplicated Category: Medical Plan . Orders: Orders Apolipoprotein A1 6 Months E78.2 - Mixed hyperlipidemia Comprehensive Met. Panel 6 Months E78.2 - Mixed hyperlipidemia, I10 - Essential (primary) hypertension, R73.03 - Prediabetes Complete Blood Count no Diff 6 Months E78.2 - Mixed hyperlipidemia, I10 - Essential (primary) hypertension, R73.03 - Prediabetes TSH reflex Free T4 6 Months E78.2 - Mixed hyperlipidemia, I10 - Essential (primary) hypertension, R73.03 - Prediabetes Apolipoprotein B 6 Months E78.2 - Mixed hyperlipidemia Lipid Panel 6 Months E78.2 - Mixed hyperlipidemia, I10 - Essential (primary) hypertension, R73.03 - Prediabetes Microalbumin, Random (w Creat) 6 Months E78.2 - Mixed hyperlipidemia, I10 - Essential (primary) hypertension, R73.03 - Prediabetes Vitamin D 25-OH Total 6 Months E78.2 - Mixed hyperlipidemia, I10 - Essential (primary) hypertension, R73.03 - Prediabetes Vitamin B12 and Folate 6 Months E78.2 - Mixed hyperlipidemia, I10 - Essential (primary) hypertension, R73.03 - Prediabetes Referrals Dermatology Referral L98.9 - Disorder of the skin and subcutaneous tissue, unspecified Medications: New ramipril 5 mg PO DAILY 90 caps 2RF ezetimibe (Zetia) 10 mg PO DAILY 90 tabs 2RF Refilled rosuvastatin 40 mg PO DAILY 90 tabs 2RF meloxicam 15 mg PO DAILY 90 tabs 0RF budesonide 180 mcg/actuation (Pulmicort Flexhaler) 1 inh inhalation BID 1 ea 2RF Discontinued beclomethasone dipropionate 80 mcg/actuation (Qvar RediHaler) Discontinued Reason: Insurance Denied 2 inhalations inhalation BID 10.6 grams 12RF
[2024-11-08 12:35] VITALS: BP 126/70; PULSE 69; RESP 12; TEMP 36.2; O2SAT 99; BMI 32.4
== END 2024-11-08 13:26 | disposition home or self-care (01) ==
LOC: HO.HMCFM 12:26
PROVIDERS: PCP Nurse Practitioner Family; Visit Provider Nurse Practitioner Family
DX: E78.2 Mixed hyperlipidemia (principal); L98.9 Disorder of the skin and subcutaneous tissue, unspecified; I10 Essential (primary) hypertension; R73.03 Prediabetes; J45.20 Mild intermittent asthma, uncomplicated

== ENCOUNTER → 2024-11-08 12:26 | Outpatient (BNVA) | payer MEDICARE, MEDICAID, SELFPAY | PROVIDERS: PCP Nurse Practitioner Family; Visit Provider Nurse Practitioner Family | DX: E78.2 Mixed hyperlipidemia (principal); L98.9 Disorder of the skin and subcutaneous tissue, unspecified; I10 Essential (primary) hypertension; R73.03 Prediabetes; J45.20 Mild intermittent asthma, uncomplicated | CPT/HCPCS: 96127; 96160; 99212 ==

== ENCOUNTER 2024-11-19 11:17 | Outpatient (AMB) | payer MEDICARE, MEDICAID, SELFPAY ==
[2024-11-19 11:47] VITALS: BP 132/70; PULSE 76; TEMP 36.7; O2SAT 96; BMI 32.1
--- NOTE | 2024-11-19 11:47 | MHC.OFFWIV ---
Intake Vital Signs 11/19/24 11:47 Height 5 ft 5 in Weight 193 lb BMI 32.1 BP 132/70 Blood Pressure Location Rt brachial Position Sitting Pulse 76 Pulse Source Pulse Oximeter Temp 98.0 F Temp Source Oral Pulse Oximetry (%) 96 Oxygen Delivery Method Room Air Intake Visit Reasons: EP poison estephanie Intake Note: presents with poison estephanie rash, mostly to upper torso Patient Tobacco Use Status: Never used Tobacco Allergies Sulfa (Sulfonamide Antibiotics) Allergy (Intermediate, Verified 11/19/24 11:56) rash latex (LATEX) Allergy (Unknown, Verified 11/19/24 11:56) RASH Medication List - Last Reconciled 11/19/24 by Silvana Steven, CLASSROOM TEACHER- albuterol sulfate 90 mcg/actuation 2 puffs inhalation Q6H PRN budesonide 180 mcg/actuation (Pulmicort Flexhaler) 1 inh inhalation BID cetirizine (Allergy Relief (cetirizine)) 10 mg PO DAILY PRN ezetimibe (Zetia) 10 mg PO DAILY meloxicam 15 mg PO DAILY ramipril 5 mg PO DAILY rosuvastatin 40 mg PO DAILY Do you need a note to return to daycare/school/sports/work: No HPI HPI Comments History of Present Illness Details History of Present Illness - The patient is a 68-year-old female presenting with a poison estephanie rash - Onset after gardening with vine exposure. - Rash locations: neck, back, stomach, ears. 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 - Concurrent case in partner treated successfully with prednisone. - Zyrtec use noted, no significant symptom change. Exam: - Skin: Widespread rash involving back, neck, stomach, behind ears c/w poison estephanie. No secondar infection. No involvement of eyes or mouth. Speaking in full sentences Discussion Notes During this visit, we discussed the likely diagnosis of allergic contact dermatitis due to gardening activities, leading to exposure to an irritant. Given the widespread nature and severity of the rash, and the ineffectiveness of current topical therapy, I recommended initiating an oral prednisone taper. The benefits of this treatment include a strong initial burst followed by a gradual taper to calm the immune response. Potential side effects such as insomnia if taken late in the day and gastrointestinal upset if not taken with food were reviewed. We also discussed [id number]-wxvvjzk options like Tecnu scrub to aid in managing and preventing the spread of the rash. I provided instructions concerning the management of linens and towels to prevent reinfection or spread. 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 This visit also provided anticipatory guidance on the need to take all medications as directed. Assessment and Plan 1. Allergic Contact Dermatitis - Prescribe prednisone taper. - Instruct on food intake with medication. - OTC Tecnu scrub usage. - Maintain hygiene practices with linens and towels. - Continue Zyrtec. Patient Instructions - Take prednisone as directed: 50 mg (5 tablets of 10 mg) daily for 2 days, then decrease by 10 mg every two days. - Always take prednisone with food. - Use Tecnu scrub to cleanse the skin. - Do not share or reuse towels; wash with hot water. - Keep taking Zyrtec daily. - Follow up with dermatology as planned. Consent Patient was informed and verbally consented to the use of an ambient scribe for clinic note documentation during this visit. [facility] Medical History Asthma HTN (hypertension) High cholesterol Surgical History H/O tubal ligation Family History Mother HTN (hypertension) Uterus cancer Sister Uterus cancer Social History Household Members: Spouse Household Members Other:: grandauthers Both parents involved: No Caregiver staying overnight: No Housing: House Are you a primary healthcare liaison to a significant other at home: No Do you presently have visiting nurse or other home services: No 75 years or older and lives alone: No Alcohol intake: current Alcohol intake frequency: 3 or more drinks per day Patient Tobacco Use Status: Never used Tobacco e-Cigarette/Vaping Use: Never Used service: No Current occupational status: retired Sexual orientation: Straight/Heterosexual Gender identity: Female Cognitive needs: No Hearing needs: No Vision needs: No Physical Exam Vital Signs: Last Vital Signs Temp 98.0 F 11/19/24 11:47 Pulse 76 11/19/24 11:47 BP 132/70 11/19/24 11:47 Pulse Ox 96 11/19/24 11:47 Oxygen Delivery Method Room Air 11/19/24 11:47 BMI result Body Mass Index 32.1 Assessment & Plan Assessment & Plan (1) Poison estephanie dermatitis: Code(s): L23.7 - Allergic contact dermatitis due to plants, except food Plan . Medications: New prednisone 5 tabs x 2 days, 4 tabs x 2 days, 3 tabs x 2 days, 2 tabs x 2 days, 1 tab x 2 days and then STOP. 10 mg PO DIRECTED 30 tabs 0RF 10 days Patient Instructions: TECNU OTC Scrub Coding Level of Care Code Est Pt Level 3 (71410) Diagnoses Poison estephanie dermatitis L23.7
--- OUTSIDE RECORDS SUMMARY | 2024-11-19 12:32 | XMS_ITS ---
Author Name SinBri giraldo Address Unknown Organization [facility] Care Team Providers Care Prison Teacher Name Role Phone Unavailable Primary Care Physician Unavailab le History Of Present Illness This is a 68 year old female who is a new patient who is being seen for an evaluation of skin lesions.Location: body throughoutDuration: yearsPertinent Negatives: no history of previous skin cancer, no history of melanoma, no family history of melanoma, and no family history of non-melanoma skin cancerAdditional Visit Reasons: education and counseling about sun exposureAdditional History: Pt has concerns that she has poison rowena on hear neck arms and stomach very itchy. Allergies, Adverse Reactions, Alerts Substance RxNorm Reaction(s) Severity Status Start Da te latex [id number] unspecified active adhesive unspecified active Bactrim unspecified active Medications Medication Generic Name RxNorm Strength Strength Unit Route Dose Dose Form Frequency Date Started Date Ended Status Indication Sig clobetasol clobetas ol 321493 0.05 % Topica l cream BID 11/16/19 25 active Appl y a thin laye r twic e walker y to rash 2 week s/mo nth as need ed. Pulmicort Flexhaler 401635 180 mcg/actua tion Inhala tion 1 Aeros ol Powde r, Breat h Activ ated prn active ezetimibe 060012 10 mg Oral 1 table t qd active meloxicam 654848 15 mg Oral 1 table t qd active ramipril 464502 5 mg Oral 1 capsu le qd active rosuvastati n 796733 40 mg Oral 1 table t qd active Problems Problem Code Type Status Date of Diagnosis Date of Resolution Actinic keratosis (disorder) ( SNOMED) Diagnosis active 11/15/2024 Allergic contact dermatitis caused by plant material (disorder) 3602861592 3550014(SN OMED) Diagnosis active 11/15/2024 Inflammatory dermatosis (disorder) 267986610( SNOMED) Diagnosis active 11/15/2024 Melanocytic nevus of trunk (disorder) 258229955( SNOMED) Diagnosis active 11/15/2024 Hemangioma of skin and subcutaneous tissue (disorder) 626319719( SNOMED) Diagnosis active 11/15/2024 Disorder of pigmentation (disorder) 786332314( SNOMED) Diagnosis active 11/15/2024 Seborrheic keratosis (disorder) 751990807( SNOMED) Diagnosis active 11/15/2024 Patient encounter status (finding) 402742331( SNOMED) Diagnosis active 11/15/2024 Intrinsic (allergic) eczema L20.84(ICD -10) Diagnosis active 12/25/2019 Other seborrheic keratosis L82.1(ICD- 10) Diagnosis active 12/25/2019 Hemangioma of skin and subcutaneous tissue D18.01(ICD -10) Diagnosis active 12/25/2019 Other melanin hyperpigmentation L81.4(ICD- 10) Diagnosis active 12/25/2019 Asthma (disorder) 583795985( SNOMED) Problem active Hypercholesterolemia (disorder) 54783900(S NOMED) Problem active Results No data Encounters Service provided at [facility], [address] [place] [address], [address], [place], [place] [id number]. Office phonenumber is [phone]. Office fax number is [phone]. Encounter Diagnosis Location Date / Time Type Actinic Keratosis (L57.0)Poi son Rowena Dermatitis (L23.7)Dermatitis Unspecified (L30.9)Benign Appearing Nevi (D22.5)Rosa Angiomas (D18.01)Lentigines (L81.4)Stucco Keratoses (L82.1)Seborrheic Keratoses (L82.1)Skin Education (Z71.89) [facility] 11/15/2024 19:00:00 [facility] [id number] Reason For Referral No data Procedures Procedure Date Destruction of premalignant skin lesion (procedure) 11/15/2024 12:00 am [place] Documentation of past medical history (p rocedure) Review Of Systems Provider reviewed on Nov 15, 2024.A focused review of systems was performed including Integumentary.No Problems With Healing And No Problems With Scarring (hypertrophic Or Keloid). Assessment 1.Actinic KeratosisCounselingLiquid Nitrogen: superior mid forehead; Number of freeze-thaw Cycles -2 freeze-thaw cycles; Duration of freeze thaw-cycle (seconds) - 10.2.Poison Rowena DermatitisCounselingPrescription: clobetasol 0.05 % topical cream TP Frequency: BIDPrescription Medication Management: Plan - :Rx today: 1. Clobetasol 0.05% topical cream x BID, 2 weeks on, 1 week off. Repeat as needed.Avoid apply to the eyelids. Call immediately if rash spreads to the eyes.;.3.Dermatitis UnspecifiedCounselingPrescription Medication Management: Plan - :Advised to use clobetasol 0.05% topical cream xBID, 2 weeks on, 1 week off. Repeat as needed.;.4.Benign Appearing NeviCounseling5.Rosa AngiomasCo unseling6.LentiginesCounseling7.Stucco KeratosesCounseling8.Seborrheic KeratosesCounseling9.Skin EducationCounseling Plan of Care Future visit for 11/15/2025 - Follow up in 1 year for: Skin Check - 15 minutes Code Detail Instructions 209554 clobetasol 0.05 % topical cream Apply a thin layer twice daily to rash 2 weeks/month as needed. 5799087 triamcinolone acetonide 0.1 % lo tion Apply to itchy area on right ear twice a day for 2 weeks on and 1 week off, prn. Avoid face and body folds. Instructions * I counseled the patient regarding the following:Skin Care: Sun protective clothing and broad spectrum sunscreen can prevent the formation of Actinic Keratoses. AKs can resolve with cryotherapy, photodynamic therapy, imiquimod, topical 5-FU.Expectations: Actinic Keratoses are precancerous proliferations that occur within sun damaged skin. If untreated, a small subset of AKs can develop into Squamous Cell Carcinoma.Contact Office if: If AKs fail to resolve despite treatment, or if you develop a side effect from therapy, such as unbearable crusting, scabbing, redness and tenderness.I recommendedthe following: Broad Spectrum Sunscreen SPF 30+ * I counseled the patient regarding the following:Skin care: Eliminate exposure to plants that may cause the rash. Topical steroids are adequate for localized eruptions. Generalized eruptions may benefit from systemic therapy.Expectations: Contact dermatitis can persist for several weeks before it fully resolves. Toxicodendron includes poison rowena, poison oak and poison sumac. If you have developed a reaction to one type of plant you will also cross-react with the other species.Contact office if: Contact dermatitis worsens or fails to improve despite several weeks of treatment.I recommended the following: AntihistaminesTopical SteroidsThe following medication counseling was provided:I discussed with the patient that prolonged use of topical steroids can result in the increased appearance of superficial blood vessels (telangiectasias), lightening (hypopigmentation) and thinning of the skin (atrophy). Patient understands to avoid using high potency steroids in skin folds, the groin or the face. The patient verbalized understanding of the proper use and possible adverse effects of topicalsteroids. All of the patient's questions and concerns were addressed. * I counseled the patient regarding the following:Skin care: Emollients, shampoos with tar, selenium or zinc pyrithione can improve seborrheic dermatitis.Expectations: Seborrheic Dermatitis is chronic in nature with periods of remissions and flares. Flares can be triggered by stress.Contact office if: Seborrheic dermatitis worsens, or fails to improve despite several months of treatment.I recommended the following: ShampoosTopical Antifungals * I counseled the patient regarding the following:Instructions: Monthly self- skin checks to monitor for any changes in moles are recommended.Expectations: Benign Nevi are pigmented nests of cells within the skin. No treatment is necessary.Contact Office if: Any moles change in size, shape or color; itch, burn or bleed. * I counseled the patient regarding the following:Skin Care: Rosa Angiomas can resolve with lasers or electrodesiccation.Expectations: Rosa Angiomas are benign vascular growths. No treatment is necessary. * I counseled the patient regarding the following:Skin Care: Lentigines can resolve with broad spectrum sunscreen, sun avoidance, bleaching creams, retinoids, chemical peels and laser.Expectations: Lentigines are benign pigmented lesions that occur on sun-exposed and sun-damaged skin. They are easilytreatable.I recommended the following: Broad Spectrum Sunscreen SPF 30+ * I counseled the patient regarding the following:Skin Care: Seborrheic Keratoses are benign. No treatment is necessary.Expectations: Seborrheic Keratoses are benign warty growths. Patients get more ofthem as they age. * I counseled the patient regarding the following:Skin Care: Seborrheic Keratoses are benign. No treatment is necessary.Expectations: Seborrheic Keratoses are benign warty growths. Patients get more ofthem as they age. * I counseled the patient regarding the following:Sun screen (SPF 30 or greater) should be applied during peak UV exposure (between 10am and 2pm) and reapplied after exercise or swimming.The ABCDEs of melanoma were reviewed with the patient, and the importance of monthly self-examination of moles was emphasized. Should any moles change in shape or color, or itch, bleed or burn, pt will contact our office for evaluation sooner then their interval appointment.I recommended the following: Broad Spectrum Sunscreen SPF 30+Self- Skin Exams Social History Code Activity Start Date End Date [id number] (Huddler) Never smoker Sex female Sexual orientation Unspecified Gender identity Unspecified Vital Signs No data
== END 2024-11-19 12:45 | disposition home or self-care (01) ==
PROVIDERS: PCP Nurse Practitioner Family; Visit Provider Nurse Practitioner Family
DX: L23.7 Allergic contact dermatitis due to plants, except food (principal)

== ENCOUNTER → 2024-11-19 11:17 | Outpatient (BNVA) | payer MEDICARE, MEDICAID, SELFPAY | PROVIDERS: PCP Nurse Practitioner Family; Visit Provider Nurse Practitioner Family | DX: L23.7 Allergic contact dermatitis due to plants, except food (principal) | CPT/HCPCS: 99212 ==

== ENCOUNTER 2025-01-24 08:58 | Outpatient (AMB) | payer MEDICARE, MEDICAID, SELFPAY ==
--- NOTE | 2025-01-24 09:00 | A.OFFPC_ITS ---
Vital Signs 3 01/24/25 09:03 Height 5 ft 5 in Weight 191 lb 8 oz BMI 31.9 BP 132/70 Blood Pressure Location Lt brachial Position Sitting Respiration 13 Pulse 71 Pulse Source Pulse Oximeter Temp 97.2 F Temp Source Oral Pulse Oximetry (%) 97 Oxygen Delivery Method Room Air Intake Visit Reasons: bug bite Intake Note: Patient c/o a bug bite on right leg Medical Parasitologist Required: No Allergies Sulfa (Sulfonamide Antibiotics) Allergy (Intermediate, Verified 01/24/25 09:00) rash latex (LATEX) Allergy (Unknown, Verified 01/24/25 09:00) RASH Medication List - Last Reconciled 01/24/25 by Silvana Steven, MANAGER [employer]- albuterol sulfate 90 mcg/actuation 2 puffs inhalation Q6H PRN budesonide 180 mcg/actuation (Pulmicort Flexhaler) 1 inh inhalation BID cetirizine (Allergy Relief (cetirizine)) 10 mg PO DAILY PRN ezetimibe (Zetia) 10 mg PO DAILY meloxicam 15 mg PO DAILY prednisone 10 mg PO DIRECTED 10 days ramipril 5 mg PO DAILY rosuvastatin 40 mg PO DAILY Tobacco use date assessed: 01/24/25 Fall risk assessment: No Falls in past year Last assessed Fall Risk: 01/24/25 Dental Screening Dental Screen Date: 01/24/25 Did you have a dental visit in the last 12 months?: Yes Did you have a dental problem in the last 6 months where you did not have access to dental care?: No Was dental information given to patient?: Patient has dentist HPI HPI Comments 2 History of Present Illness0 Details 69-year-old female with hypertension, hy perlipidemia, asthma, heart murmur, osteopenia, prediabetes, history of neck fracture as a child, edematous colon polyp, family hx of lung ca, family hx of endometrial cancer, eczema Here today w/ a suspected bug bite to inside of R thigh Noted yesterday Not itchy or painful Did not see a bug UTD on Tdap. Denies systemic sx No at home treatments No one else w/ this same presentation in her home or close contacts Due for flu shot Exam Inside R thigh, no drainage or warmth Plan Flu shot Doxy x 7 days Contact me if no improvement or worse RTO as scheduled, sooner PRN PFSH Medical History Asthma HTN (hypertension) High cholesterol Surgical History H/O tubal ligation Family History Mother HTN (hypertension) Uterus cancer Sister Uterus cancer Social History Household Members: Spouse Household Members Other:: grandauthers Both parents involved: No Caregiver staying overnight: No Housing: House Are you a primary patient care manager to a significant other at home: No Do you presently have visiting nurse or other home services: No 75 years or older and lives alone: No Alcohol intake: current Alcohol intake frequency: 3 or more drinks per day Patient Tobacco Use Status: Never used Tobacco e-Cigarette/Vaping Use: Never Used service: No Current occupational status: retired Sexual orientation: Straight/Heterosexual Gender identity: Female Cognitive needs: No Hearing needs: No Vision needs: No Questionnaire Thrive Questionnaire Date Thrive assessed: 05/16/24 I am a: Patient What is your living situation today?: I have a steady place to live Within the past 12 months, did the food you bought not last and you didn't have the money to get more?: Never true Within the past 12 months, did you worry whether your food would run out before you got money to buy more?: Never true Do you have trouble paying for medicines?: No Do you have trouble getting transportation to medical appointments?: No Do you have trouble paying your heating and electricity bill?: No Do you have trouble taking care of your child, family member or friend?: No Do you have trouble with day-to-day activities such as bathing, preparing meals, shopping, managing finances, etc.?: No Are you currently unemployed and looking for a job?: No Are you interested in more education?: No Please select the resources that you would like help with: None Currently or been in a relationship where the following occur: No concerns reported THRIVE Score: 0 EVELYN-7 AMB Questionnaire EVELYN-7 Date EVELYN - 7 assessed: 11/08/24 Source: Developed by Drs. Miguelangel BalesKathleen Kurt Kroenke and colleagues, with an educational veronica from [employer]. Physical exam (Primary Care) Vital Signs: Last Vital Signs Temp 97.2 F 01/24/25 09:03 Pulse 71 01/24/25 09:03 Resp 13 01/24/25 09:03 BP 132/70 01/24/25 09:03 Pulse Ox 97 01/24/25 09:03 Oxygen Delivery Method Room Air 01/24/25 09:03 BMI result Body Mass Index 31.9 Tobacco/Smoking Status: Tobacco use Status Tobacco use date assessed 01/24/25 01/24/25 09:04 Patient Tobacco Use Status Never used Tobacco 01/24/25 09:04 e-Cigarette/Vaping Use Never Used 01/24/25 09:04 Thrive Assessment: Date of Thrive Assessment Date Thrive assessed 05/16/24 01/24/25 09:04 Currently or been in a relationship where the following occur: No concerns reported Office Procedures Flu Questionnaire Does the patient have a severe egg allergy?: No Does the patient have severe life threatening allergies?: No Does the patient have a fever or illness today?: No Has the patient ever had Guillain-Asbury Syndrome?: No Has the patient ever had any past reaction to a flu shot?: No Immunizations Fluarix [id number] (PF) 45 mcg (15 mcg x 3)/0.5 mL IM syringe Performing Provider: MYLA Rosas [place] [facility] [facility] Administered by: Balbina Alatorre MA on 01/24/25 09:17 2 Dose Route Admin Location Dispensed Lot Number Expiration Date [facility] Custom Shoemaker 0.5 mL IM Left Deltoid 0.5 mL [id number] 10/28/24 [id number] [employer] 2 VIS Given Date VIS Provided VIS Publication Date 01/24/25 Single Vaccine 24 Eligibility Eligibility Date Funding Source Not [facility] Eligible 01/24/25 Private Coding Level of Care Code Est Pt Level 3 (68037) Complex EM visit Add On G2211 Diagnoses Cellulitis of leg, right L03.115 Influenza vaccination administered at current visit Z23 Assessment & Plan Assessment & Plan (1) Cellulitis of leg, right: Code(s): L03.115 - Cellulitis of right lower limb (2) Influenza vaccination administered at current visit: Code(s): Z23 - Encounter for immunization Plan . Orders: Orders 2 Influenza [id number] Immunization Today Z23 - Encounter for immunization Medications: New 2 doxycycline hyclate 100 mg PO BID 14 caps 0RF 7 days Discontinued 2 prednisone 5 tabs x 2 days, 4 tabs x 2 days, 3 tabs x 2 days, 2 tabs x 2 days, 1 tab x 2 days and then STOP. Discontinued Reason: Patient Completed Course 10 mg PO DIRECTED 10 days 30 tabs 0RF
[2025-01-24 09:03] VITALS: BP 132/70; PULSE 71; RESP 13; TEMP 36.2; O2SAT 97; BMI 31.9
--- OUTSIDE RECORDS SUMMARY | 2025-01-24 09:35 | XMS_ITS ---
Author Name [facility] Organization Unknown Care Team Organization Name Specialty Phone Email Start Date End Da te [facility] NULL Primary Care 05/09/2022 12/18/2023 [facility] Termed, PROVIDER Primary Care 03/08/202211/29
== END 2025-01-24 12:35 | disposition home or self-care (01) ==
LOC: HO.HMCFM 08:59
PROVIDERS: PCP Nurse Practitioner Family; Visit Provider Nurse Practitioner Family
DX: L03.115 Cellulitis of right lower limb (principal); Z23 Encounter for immunization

== ENCOUNTER → 2025-01-24 08:58 | Outpatient (BNVA) | payer MEDICARE, MEDICAID, SELFPAY | PROVIDERS: PCP Nurse Practitioner Family; Visit Provider Nurse Practitioner Family | DX: L03.115 Cellulitis of right lower limb (principal); Z23 Encounter for immunization | CPT/HCPCS: 90471; 90656; 99212 ==